=== PATIENT | female | born 1995 | race Caucasian/White ===

== ENCOUNTER 2020-08-28 14:58 | Emergency (ER) | payer SELFPAY ==
[2020-08-28 15:08] VITALS: BP 151/81; PULSE 123; RESP 28; TEMP 37.1; O2SAT 96
--- NOTE | 2020-08-28 15:10 | ECG_ITS ---
Measurements Intervals [place] Rate: 116 P: 77 VA: 129 QRS: 43 QRSD: 86 T: 51 QT: 334 QTc: 464 Interpretive Statements SINUS TACHYCARDIA BASELINE ARTIFACT- I, II, III, AVR, AVL, AVF, V1-V6 ABNORMAL ECG Electronically Signed On 08-28-2020 19:21:41 CDT by Zack Matthews D.O.
[2020-08-28] MEDS: LORazepam INJ (*CRX) 2 MG/ML VIAL 1 MG IV PUSH (15:18)
[2020-08-28] MEDS: MORPHINE SULFATE (*CRX) 4 MG/ML INJ IV PUSH (15:52)
[2020-08-28 15:53] VITALS: BP 131/73; PULSE 81; RESP 31; O2SAT 100
[2020-08-28] MEDS: ONDANSETRON INJ 4 MG/2 ML VIAL IV PUSH (15:53)
[2020-08-28 16:05] LABS: Alveolar/Arterial O2 Gradient 350.9 mmHg; Base Excess ABG -5.7 mEq/l (+/-2.0); Fractional Inspired Oxygen 100 %; HCO3 ABG 20.3 mEq/l (22.0-26.0); Oxygen Content ABG 20.2 %vol (16.0-22.0); Oxygen Saturation ABG 99.7 % (95.0-100.0); Oxyhemoglobin 98.1 % THb (90.0-100.0); PO2 ABG 320.1 mmHg (80.0-100.0); Total Hemoglobin 14.1 g/dL (12.0-18.0); pH ABG 7.303 (7.350-7.450)
[2020-08-28 16:06] LABS: Device NON-REBREATHER MASK; Site Drawn RIGHT BRACHIAL
[2020-08-28 16:16] LABS: Basophils Percent Auto 0.2 % (0.2-1.2); Eosinophils Percent Auto 0.1 % (0-4.4); Hemoglobin 14.3 g/dL (12.0-15.0); Immature Granulocyte Absolute 0.06 K/mm3 (0.00-0.031); Immature Granulocyte Percent A 0.3 % (0-0.5); Lymphocytes Absolute Auto 0.83 K/mm3 (0.9-3.2); Lymphocytes Percent Auto 4.6 % (18.3-44.2); Mean Corpuscular HGB Conc 32.5 g/dl (32-36); Mean Corpuscular Hemoglobin 31.2 pg (26-34); Mean Corpuscular Volume 96.1 fl (80-100); Mean Platelet Volume 11.5 fl (7.4-10.4); Monocytes Absolute Auto 0.8 K/mm3 (0.1-0.6); Monocytes Percent Auto 4.3 % (2.6-8.5); Neutrophils Absolute Auto 16.2 K/mm3 (1.3-6.7); Neutrophils Percent Auto 90.5 % (45.5-73.1); Platelet Count Result 335 k/mm3 (150-375); Red Blood Count 4.58 M/mm3 (4.2-5.4); Red Cell Distribution Width 12.7 % (11.5-14.5); White Blood Count 17.9 K/mm3 (4.5-10.0)
[2020-08-28 16:30] LABS: Alanine Aminotransferase 24 U/L (4-35); Albumin Level 5.2 g/dL (3.5-5.1); Alkaline Phosphatase 61 U/L (38-126); Anion Gap 15 mmol/L (8-16); Aspartate Amino Transferase 95 U/L (14-36); Bilirubin,Total 0.8 mg/dL (0.2-1.3); Blood Urea Nitrogen 17 mg/dL (7-17); Calcium 9.9 mg/dL (8.4-10.2); Carbon Dioxide 22 mmol/L (22-30); Chloride 102 mmol/L (98-107); Estimated CRCL calculation 69 ml/min; Estimated Glomerular Filt Rate > 60; Glucose 97 mg/dL (65-105); Potassium 4.4 mmol/L (3.4-5.0); Sodium 139 mmol/L (137-145)
[2020-08-28] MEDS: KETOROLAC 30 MG/ML VIAL (*BKC) IV PUSH (17:27)
[2020-08-28] MEDS: SODIUM CHLORIDE 0.9% IV 1,000 ML 999 ML IV CONT (17:27)
[2020-08-28 18:16] VITALS: BP 105/55; PULSE 103; RESP 16; O2SAT 99
--- NOTE | 2020-08-28 18:31 | ED.GENADULT ---
HPI - General Adult General Chief complaint: Neuro Symptoms/Deficit Stated complaint: my body is paralized Source: patient, family and RN notes reviewed Limitations: no limitations History of Present Illness HPI narrative: Patient is 24 years old white female brought to the emergency room by her mom because of painful spasm of the fingers hands and toes and feet started at 8:00 AM today. Patient reported having similar symptoms 2 years ago. Used to be on Klonopin to manage similar situation but ran out of it months ago. Patient been using marijuana 3 times a week instead. Patient reports a lot of stress lately. Patient denied any fever, chills, nausea, vomiting, chest pain, shortness of breath, back pain or abdominal pain or headache. Related Data Allergies Allergy/AdvReac Type Severity Reaction Status Date / Time No Known Allergies Allergy Verified 10/10/16 12:00 Review of Systems Review of Systems: Narrative: CONSTITUTIONAL: Denies fever, chills, or sweats. EYES: Denies visual changes, redness, or discharge. ENT: Denies rhinorrhea, congestion, sore throat, or otalgia. CARDIOVASCULAR: Denies chest pain, palpitations, or edema. RESPIRATORY: Denies cough or dyspnea. GASTROINTESTINAL: Denies abdominal pain, nausea, vomiting, or diarrhea. GENITOURINARY: Denies dysuria or hematuria. SKIN: Denies rash or itching. MUSCULOSKELETAL: Denies back pain, joint pain, or myalgia. NEUROLOGIC: Denies headache, numbness, or weakness. PSYCHIATRIC: Denies anxiety or depression. [facility] Family History Family History Father Family history of diabetes mellitus in first degree relative Exam Narrative: Exam Narrative: General appearance: Well-developed, well-nourished, hyperventilating, mother at the bedside Skin: Normal color Head: Normocephalic, nontraumatic Eyes: Clear conjunctiva ENT: Oropharynx normal, ears normal, nose normal Neck: Supple, nontender Chest and respiratory: Airway patent, no respiratory distress, no accessory muscle use Heart: Regular rate/rhythm Abdomen: Soft, nontender, no organomegaly, quiet bowel sounds Vascular: Normal peripheral pulses, normal capillary refill. Musculoskeletal: Carpopedal spasm, spasm of the toes Neurologic: Alert and oriented ?3, SUPERINTENDENT LOGGING is normal as tested, no gross motor deficit Course Course Emergency Course: Improving Vital Signs Vital signs: Vital Signs Temperature 37.1 C 08/28/20 15:08 Pulse Rate 123 H 08/28/20 15:08 Respiratory Rate 28 H 08/28/20 15:08 Blood Pressure 151/81 H 08/28/20 15:08 Pulse Oximetry 96 08/28/20 15:08 Temperature 37.1 C 08/28/20 15:08 Pulse Rate 103 H 08/28/20 18:16 Respiratory Rate 16 08/28/20 18:16 Blood Pressure 105/55 L 08/28/20 18:16 Pulse Oximetry 99 08/28/20 18:16 Medical Decision Making MDM Narrative Medical decision making narrative: Ventimask, Ativan IV ordered. Further plan to follow Hyperventilation syndrome is my concern. Differential Diagnosis Differential Diagnosis: Hyperventilation syndrome, electrolyte abnormality Vital Signs Vital Signs: Vital Signs Temperature 37.1 C 08/28/20 15:08 Pulse Rate 123 H 08/28/20 15:08 Respiratory Rate 28 H 08/28/20 15:08 Blood Pressure 151/81 H 08/28/20 15:08 Pulse Oximetry 96 08/28/20 15:08 Temperature 37.1 C 08/28/20 15:08 Pulse Rate 103 H 08/28/20 18:16 Respiratory Rate 16 08/28/20 18:16 Blood Pressure 105/55 L 08/28/20 18:16 Pulse Oximetry 99 08/28/20 18:16 Lab Data Result diagrams: 08/28/20 16:04 08/28/20 16:04 Labs: Lab Results 08/28/20 08/28/20 Range/Units 16:04 16:04
[2020-08-28 18:53] LABS: Add Urine Microscopic? YES; Appearance Urine Cloudy (Clear); Bilirubin Urine Negative (Negative); Blood Urine 1+ (Negative); Color Urine Yellow (Yellow); Glucose Urine UA Negative (Negative); Ketones Urine 2+ mg/dL (Negative); Leukocyte Esterase Ur Negative LEU/UL (Negative); Mucus Urine Moderate /lpf; Nitrate Urine Negative (Negative); Protein Urine 2+ mg/dL (Negative); Specific Grav Ur 1.027 (1.001-1.035); Squamous Epithelial Cell Urine Few /hpf (Few); Urobilinogen Urine Negative mg/dL (<2.0); WBC Urine 0-3 /hpf
[2020-08-28 18:56] VITALS: BP 118/72; PULSE 78; RESP 15; O2SAT 100
== END 2020-08-28 18:57 | disposition home or self-care (01) ==
PROVIDERS: Emergency Provider Emergency Medicine; PCP Family Medicine
DX: F45.8 Other somatoform disorders (principal)
CPT/HCPCS: 36415; 36600; 80053; 81001; 81025; 82805; 85025; 93005; 96361; 96374; 96375; 99284; J1885; J2060; J2270; J2405; J7030

== ENCOUNTER 2024-07-26 14:42 | Emergency (ER) | payer OTHER, MEDICAID, SELFPAY ==
[2024-07-26 14:45] VITALS: BP 120/60; PULSE 54; RESP 20; TEMP 35.8; O2SAT 96
--- OUTSIDE RECORDS SUMMARY | 2024-07-26 14:45 | XMS_ITS | Clinical Summary ---
Author Organization [facility] Address [address] [place] [address] Care Team Providers Care Thread Drawer Name Role Phone Nguyễn Matias MD Primary Care Provider [phone] Source Comments [facility],non-owned Affiliates and Associated Physician Practices is amultiple site organization consisting of ambulatory clinics and hospital sitesin [place], [place], [place] and [place]. This disclosure is being madepursuant to the Care Everywhere program and may not contain all information available regarding this patient. Last updated 18.[facility] Medications * Be aware that medications may not be up to date on this document. Alwaysverify current medications with the patient. Medication Sig Dispensed Refills Start Date End Date Status albuterol HFA (PROVENTIL HFA) 108 (90 BASE) MCG/ACT inhaler Inhale 2 puffs by mouth q6h PRN. 01/13/2017 Active ondansetron (ZOFRAN) 8 MG tablet Take 8 mg by mouth. 0 12/24/2016 Active Active Problems Problem Noted Date Diagnosed Date Chronic viral hepatitis C 01/13/2017 Social History Tobacco Use Types Packs/Day Years Used Date Smoking Tobacco: Every Day Smokeless Tobacco: Never Alcohol Use Standard Drinks/Week Comments Yes 0 (1 standard drink = 0.6 oz pur e alcohol) Sex and Gender Information Value Date Recorded Sex Assigned at Not on file Gender Identity Not on file Sexual Orientation Not on file Last Filed Vital Signs Vital Sign Reading Time Taken Comments Blood Pressure 101/58 01/13/2017 10:29 AM CDT Pulse 71 01/13/2017 10:29 AM CDT Temperature 36.6 C (97.8 F) 01/13/2017 10:29 AM CDT Respiratory Rate - - Oxygen Saturation 100% 01/13/2017 10:29 AM CDT Inhaled Oxygen Concentration - - Weight 56.3 kg (124 lb 3.2 oz) 01/13/2017 10:29 AM CDT Height 167.6 cm (5' 6 ) 01/13/2017 10:29 AM CDT Body Mass Index 20.05 01/13/2017 10:29 AM CDT Plan of Treatment Health Maintenance Due Date Last Done Comments PAP SMEAR 1995 HIV SCREENING 12/19/2010 DTAP/TDAP/TD VACCINES (1 - Tdap) 12/19/2014 HEPATITIS B VACCINE (1 of 3 - 19+ 3-dose series) 12/19/2014 COVID-19 VACCINE (1 - 2023- season) 2023 INFLUENZA VACCINE (#1) 2023 DEPRESSION SCREENING 05/01/2024 ZOSTER VACCINE (1 of 2) 12/19/2045 HEPATITIS C SCREENING Completed 01/13/2017 , 01/13/2017, 01/13/2017, Additional history exists HIB VACCINE Aged Out No longer eligi ble based on patient's age to complete this topic HPV VACCINE Aged Out No longer eligi ble based on patient's age to complete this topic MENINGOCOCCAL (Group B) VACCINE SHARED DECISION-MAKING Aged Out No longer eligible based on patient's age to complete this topic MENINGOCOCCAL GROUPS A/C/Y/W VACCINE Aged Out No longer eligible based on patient's age to complete this topic PNEUMOCOCCAL VACCINE Aged Out No long er eligible based on patient's age to complete this topic Procedures Procedure Name Priority Date/Time Associated Diagnosis Comments HEPATITIS C RNA QUANTITATIVE Routine 01/13/2017 11:19 AM CDT from Last 3 Months or Most Recently Relevant to Health Maintenance Results * HEPATITIS C RNA QUANTITATIVE PCR (01/13/2017 11:19 AM CDT) Pathologist [facility] Hepatitis C Virus RNA PCR Accession No: [id number] Specimen: Serum Reference: [id number] Test: Hepatitis C RT-PCR (Quantitative) RESULT Not Detected HCV genotyping not performed due to viral load <500 IU/ml. Reference Range Not Detected INTERPRETATION The quantitative Hepatitis C viral RNA RT-PCR determination was performed on a serum sample and is reported in IU/ml. Hepatitis C viral RNA was not detected. COMMENT The Hepatitis C viral (HCV) RNA analysis utilized a serum sample, real-time reverse personal driver PCR, and is reported as Not Detected, Detected (<12 IU/ml), Quantity (IU/ml) or >100,000,000 IU/ml. The limit of quantiation of the assay is 12 IU/ml (100% of samples with this HCV RNA level were detected). The linear range is from 12 IU/ml to 100,000,000 IU/ml. Values less than 12 IU/ml are reported as Detected (<12 IU/ml). Values greater than 100,000,000 IU/ml are reported as >100,000,000 IU/ml. The detection/quantit ation of HCV RNA in serum is based on the isolation of HCV RNA with reverse personal driver of genomic HCV RNA followed by real-time PCR in the presence of an unrelated RNA internal control. The internal control ensures that RNA is isolated, and that no general significant inhibitors of the RT-PCR process are present. This analysis was performed using an [place] FDA approved test methodology ([employer]ibo RealTime HCV). Test performed at [facility], [address] [place] [address] This case has been personally reviewed and interpreted by the attending (teaching) pathologist. Final Diagnosis performed by Jonathan Orellana PHD. Electronically signed 01/21/2017 [facility] Blood specimen (specimen) BLOOD SPECIMEN / Unknown 01/13/2017 11:19 AM CDT 01/13/2017 11:32 AM CDT Delmi Rodriguez PA-C LAB - CHEMISTRY O RDKASSIDY [facility] from Last 3 Months or Most Recently Relevant to Health Maintenance Care Teams Thread Drawer Relationship Specialty Start Date End Date Nguyễn Matias MD [address] [address] PCP - General 02/27/20
--- OUTSIDE RECORDS SUMMARY | 2024-07-26 14:45 | XMS_ITS | Clinical Summary ---
Author Organization [facility] Care Team Providers Care Trim Machine Operator Name Role Phone Unavailable Primary Care Provider Unavailabl e Social History Tobacco Use Types Packs/Day Years Used Date Smoking Tobacco: Never Assessed Comments Unknown Sex and Gender Information Value Date Recorded Sex Assigned at Not on file Legal Sex Female 12:14 PM [employer] Gender Identity Not on file Sexual Orientation Not on file Plan of Treatment Health Maintenance Due Date Last Done Comments Hepatitis C Virus (HCV) Screening 1995 TdaP Immunization 1995 Hepatitis B Immunization (1 of 3 - 19+ 3-dose series) 12/19/2014 Pap Smear 12/19/2016 Influenza Immunization (#1) 12/31/202301/29, 02/08/2013 SARS-COV-2 Immunization ( season) 2023 Respiratory Syncytial Virus (RSV) Immunization (Adult) (1 - 1-dose 75+ series) 12/19/2070 Meningococcal Immunization (ACWY) Aged Out No longer eligible b ased on patient's age to complete this topic Pneumococcal Immunization Combined Aged Out No longer eligible b ased on patient's age to complete this topic Rotavirus Immunization Aged Out No lo nger eligible based on patient's age to complete this topic
--- OUTSIDE RECORDS SUMMARY | 2024-07-26 14:45 | XMS_ITS | Clinical Summary ---
Author Organization [facility] Address [address] [place] [id number] Care Team Providers Care Refractory Mixer Name Role Phone Nguyễn Matias MD Primary Care Provider [phone] Allergies Active Allergy Reactions Criticality Noted Date Comments Grass Eyes Water & Itch 05/27/2016 Medications clotrimazole (LOTRIMIN) 1 % creamIndications: Generalized anxiety disorder Apply topically 2 (two) times daily. 113 g 3 10/26/19 24 Active albuterol sulfate HFA 108 (90 Base) MCG/ACT inhalerIndication s:Moderate persistent asthma without complication (HHS/HCC) Inhale 2 puffs into the lungs every 6 (six) hours as needed for Wheezing. Only uses when excercises 18 g 3 10/26/19 24 Active escitalopram (LEXAPRO) 20 MG tabletIndications :Generalized anxiety disorder Take 1 tablet (20 mg total) by mouth every morning. 90 tablet 3 05/07/19 25 026 Active amphetamine-dextr oamphetamine (ADDERALL) 20 MG tabletIndications :Attention deficit hyperactivity disorder (ADHD), predominantly inattentive type Take 1 tablet (20 mg total) by mouth 2 (two) times daily. 60 tablet 06/04/19 25 Active glycerin-hypromel lose-PEG 400 (ARTIFICIAL TEARS) 0.2-0.2-1 % ophthalmic solution Place 1 drop into both eyes every 2 (two) hours as needed (Dry eyes). Active ibuprofen (MOTRIN) 200 MG tablet Take 4 tablets (800 mg total) by mouth daily as needed for Pain. Active LORazepam (ATIVAN) 2 MG tabletIndications :Panic disorder Take 1 tablet (2 mg total) by mouth 2 (two) times daily as needed for Anxiety. 10 tablet 07/23/19 25 Active fluconazole (DIFLUCAN) 150 MG tabletIndications :Generalized anxiety disorder Take 1 tablet (150 mg total) by mouth once a week. 2 tablet 10/26/19 24 025 Discontin ued(Error ) LORazepam (ATIVAN) 2 MG tabletIndications :Muscle cramps Take 1 tablet (2 mg total) by mouth every 6 (six) hours as needed for Other (muscle spasms). 10 tablet 05/24/19 25 025 Discontin ued(Error ) LORazepam (ATIVAN) 2 MG tabletIndications :Panic disorder Take 1 tablet (2 mg total) by mouth 2 (two) times daily as needed for Anxiety. 10 tablet 06/04/19 25 025 Discontin ued(Reord er) LORazepam (ATIVAN) 2 MG tabletIndications :Panic disorder Take 1 tablet (2 mg total) by mouth 2 (two) times daily as needed for Anxiety. 10 tablet 07/02/19 25 025 Discontin ued(Reord er) Active Problems Problem Noted Date Diagnosed Date Abnormal genetic test 05/03/2023 Generalized anxiety disorder 08/04/2022 Panic disorder 08/04/2022 Attention deficit hyperactiv ity disorder (ADHD), predominantly inattentive type 04/12/2022 Chronic bilateral low back pain without sciatica 04/12/2022 Status post arthroscopy of knee 10/05/2021 Bipolar 2 disorder, major de pressive episode (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) 05/27/2016 Major depressive disorder, r ecurrent episode, severe ([facility]) 04/03/2014 Resolved Problems Problem Noted Date Diagnosed Date Resolved Date Hepatitis-C 01/03/2017 02/06/2019 Encounters Date Type Department Care Team Description 07/04/2024 3:23 AM ELECTRONICS DETAIL DRAFTSPERSON - 07/04/2024 4:17 PM [facility] Emergency [facility] [place] [address] Jaylen Medel MD,PHD Fouzia Albarran MD Suicidal Ideation Discharge Disposition: Home or Self Care (Routine Discharge) 07/04/2024 Travel 05/24/2024 8:26 AM ELECTRONICS DETAIL DRAFTSPERSON - 05/24/2024 9:57 AM ELECTRONICS DETAIL DRAFTSPERSON Emergency [facility] [address] [address] Susan Barrera PA Musculoskeletal Problem Discharge Disposition: Home or Self Care (Routine Discharge) 05/24/2024 Travel from Last 3 Months Immunizations Name Administration Dates Next Due Fluzone 6 Months+ Quad (0.5 mL Prefilled Syringe ) 04/12/2022,02/13/2020 Influenza Adult (Generic) 02/08/2013 Td (Tenivac) preservative free 1995 Tdap (Adacel) 04/12/2022 Family History Medical History Relation Comments Diabetes Father Alcohol Abuse Mother COPD Mother Mental Health Mother Relation Status Comments Father Alive Mother Alive Social History Tobacco Use Types Packs/Day Years Used Date Smoking Tobacco: Former Cigarettes 0.3 3 0 05/01/2013 - 05/01/2016 Passive Smoke Exposure: Past Smokeless Tobacco: Never Tobacco Cessation:Counseling Given: Not Answered Comments:Former, Quit 2016 Alcohol Use Standard Drinks/Week Comments Not Currently 0 (1 standard drink = 0.6 oz pure alcohol) not daily, but more than socially AUDIT-C Answer Date Recorded Frequency of Alcohol Consumption Never 03/08/2018 Average Number of Drinks Not on file 018 Frequency of Binge Drinking Not on file 11/2017 PHQ-2 Answer Date Recorded Patient Health Questionnaire-2 Score 4 10/26/2023 Comments No Sex and Gender Information Value Date Recorded Sex Assigned at Female 05/24/2024 7:58 AM ELECTRONICS DETAIL DRAFTSPERSON Legal Sex Female 5:13 PM CDT Gender Identity Not on file Sexual Orientation Not on file Last Filed Vital Signs Vital Sign Reading Time Taken Comments Blood Pressure 117/87 07/04/2024 3:11 PM ELECTRONICS DETAIL DRAFTSPERSON Pulse 105 07/04/2024 3:11 PM ELECTRONICS DETAIL DRAFTSPERSON Temperature 37.4 C (99.3 F) 07/04/2024 3:11 PM ELECTRONICS DETAIL DRAFTSPERSON Respiratory Rate 19 07/04/2024 3:23 AM ELECTRONICS DETAIL DRAFTSPERSON Oxygen Saturation 100% 07/04/2024 3:11 PM ELECTRONICS DETAIL DRAFTSPERSON Inhaled Oxygen Concentration - - Weight 63.5 kg (140 lb) 07/04/2024 3:23 AM ELECTRONICS DETAIL DRAFTSPERSON Height 167.6 cm (5' 6 ) 07/04/2024 3:23 AM ELECTRONICS DETAIL DRAFTSPERSON Body Mass Index 22.6 07/04/2024 3:23 AM ELECTRONICS DETAIL DRAFTSPERSON Plan of Treatment Health Maintenance Due Date Last Done Comments Pneumococcal Vaccine: Pediatrics (0 to 5 Years) and At-Risk Patients (6 to 64 Years) (1 of 2 - PCV) 12/19/2001 Hepatitis B Vaccines (1 of 3 - 19+ 3-dose series) 12/19/2014 Annual Physical 05/28/2021 05/28/2020 COVID-19 Vaccine (2023- season) 2023 10/08/2020, 09/17/2020 Influenza Adult (#1) 2024 04/12/2022, 02/13/2020, 02/08/2013 PHQ-2 (Physician [place]) 05/01/2024 10/26/2023 Cervical Cancer Screening Pap Smear (Age 21 to 29) Every 3 Years 05/19/2025 05/19/2022, 05/28/2020, 05/28/2020, Additional history exists Cervical Cancer Screening 05/19/2025 DTaP, Tdap and Td Vaccines (2 - Td or Tdap) 04/12/2032 04/12/2022, 1995 Hepatitis C Completed 10/27/2023, 05/02, 02/06/2019, Additional history exists HPV Vaccines Aged Out No longer eligi ble based on patient's age to complete this topic Meningococcal B Vaccine Aged Out No l onger eligible based on patient's age to complete this topic Meningococcal Vaccine Aged Out No karie horacio eligible based on patient's age to complete this topic RSV Immunizations Under 20 Months Aged Out No longer eligible based on patient's age to complete this topic Medical Devices Implanted Type Area Cotton Wringer Device Identifier Shelf Expiration Date Model / Serial / Lot Truespan Meniscal Repair System Implanted:Qty: 1 on 10/05/2021 by Gordon Heller MD at [facility] [place] Right: Knee [id number] 02/29/2024 [id number] / / [id number] Truespan Meniscal Repair System Implanted:Qty: 1 on 10/05/2021 by Gordon Heller MD at [facility] [employer] [place] Right: Knee [id number] 07/30/2023 [id number] / / [id number] Procedures Procedure Name Priority Date/Time Associated Diagnosis Comments ETHANOL STAT 07/04/2024 2:00 PM ELECTRONICS DETAIL DRAFTSPERSON DRUG SCREEN RAPID STAT 07/04/2024 4:3 2 AM ELECTRONICS DETAIL DRAFTSPERSON POCT URINE (BACK OFFICE) STAT 07/04/2024 4:31 AM ELECTRONICS DETAIL DRAFTSPERSON THYROXINE, FREE (FT4) STAT 07/04/2024 3:45 AM ELECTRONICS DETAIL DRAFTSPERSON THYROID STIM HORMONE TSH STAT 07/04/2024 3:45 AM ELECTRONICS DETAIL DRAFTSPERSON SALICYLATE STAT 07/04/2024 3:45 AM ELECTRONICS DETAIL DRAFTSPERSON ACETAMINOPHEN STAT 07/04/2024 3:45 AM ELECTRONICS DETAIL DRAFTSPERSON ETHANOL STAT 07/04/2024 3:45 AM ELECTRONICS DETAIL DRAFTSPERSON MAGNESIUM STAT 07/04/2024 3:45 AM ELECTRONICS DETAIL DRAFTSPERSON COMPREHENSIVE METABOLIC PANEL STAT 07/04/2024 3:45 AM ELECTRONICS DETAIL DRAFTSPERSON CBC W/DIFF AUTOMATED STAT 07/04/2024 3:45 AM ELECTRONICS DETAIL DRAFTSPERSON RESPIRATORY PCR PANEL 2 STAT 07/04/2024 3:35 AM ELECTRONICS DETAIL DRAFTSPERSON CK (CPK) STAT 05/24/2024 8:31 AM ELECTRONICS DETAIL DRAFTSPERSON COMPREHENSIVE METABOLIC PANEL STAT 05/24/2024 8:31 AM ELECTRONICS DETAIL DRAFTSPERSON CBC W/DIFF AUTOMATED STAT 05/24/2024 8:31 AM ELECTRONICS DETAIL DRAFTSPERSON HEPATITIS C ANTIBODY Routine 10/27/2023 3:50 PM CDT Healthcare maintenance Screening for diabetes mellitus (DM) Attention deficit hyperactivity disorder (ADHD), predominantly inattentive type Generalized anxiety disorder Seborrheic dermatitis Encounter for hepatitis C screening test for low risk patient Panic disorder Moderate persistent asthma without complication (HHS/HCC) Irregular periods CYTOPATH CERV/VAG THIN LAYER Routine 05/19/2022 9:16 AM ELECTRONICS DETAIL DRAFTSPERSON from Last 3 Months or Most Recently Relevant to Health Maintenance Results * (ABNORMAL) ETHANOL (07/04/2024 2:00 PM ELECTRONICS DETAIL DRAFTSPERSON) Only the most recent of2 resultswithin the time period is included. Pathologist [facility] ALCOHOL S/P/B 0.056(H) <0.003 G/DL 07/04/2024 2:28 PM ELECTRONICS DETAIL DRAFTSPERSON [facility] 07/04/2024 2:00 PM ELECTRONICS DETAIL DRAFTSPERSON us Jaylen Medel MD,PHD LABORATORY Final Resu lt [facility] [address] [place] [address], [place] [phone] * (ABNORMAL) DRUG SCREEN RAPID (07/04/2024 4:32 AM ELECTRONICS DETAIL DRAFTSPERSON) AMPHETAMINE (U) NEGATIVE NEGATIVE 5:18 AM ELECTRONICS DETAIL DRAFTSPERSON [facility] BARBITURATES SCREEN (U) NEGATIVE NEGATIVE 07/04/2024 5:18 AM ELECTRONICS DETAIL DRAFTSPERSON [facility] BENZODIAZEPINES SCREEN (U) NEGATIVE NEGATIVE 07/04/2024 5:18 AM ELECTRONICS DETAIL DRAFTSPERSON [facility] CANNABINOIDS SCREEN (U) POSITIVE(A) NEGATIVE 07/04/2024 5:18 AM ELECTRONICS DETAIL DRAFTSPERSON [facility] COCAINE METABOLITES (U) NEGATIVE NEGATIVE 07/04/2024 5:18 AM [facility] METHADONE (U) NEGATIVE NEGATIVE 07/04/2024 5:18 AM [facility] OPIATE SCREEN (U) NEGATIVE NEGATIVE 025 5:18 AM [facility] PHENCYCLIDINE PCP (U) NEGATIVE NEGATIVE 07/04/2024 5:18 AM [facility] Comment: NOTE: RESULTS OF THIS DRUG SCREEN SHOULD BE USED FOR MEDICAL PURPOSES ONLY AND NOT FOR LEGAL OR EMPLOYMENT PURPOSES. POSITIVE RESULTS ARE NOT CONFIRMED. MEDICATIONS CONTAINING EPHEDRINE MAY CAUSE FALSE POSITIVE AMPHETAMINE CALL [phone], LAB, TO REQUEST CONFIRMATION TESTING. IF CREATININE IS <40 mg/dL. RECOLLECTION IS SUGGESTED. AMPHETAMINE- 500 NG/ML BARBITURATE- 200 NG/ML BENZODIAZEPINES- 200 NG/ML THC- 50 NG/ML COCAINE- 150 NG/ML METHADONE- 300 NG/ML OPIATE- 300 MG/ML PCP- 25 NG/ML CREATININE (U) 119.0 28 - 217 MG/DL 07/04/2024 5:18 AM [facility] URINE SPECIMEN / Unknown 07/04/2024 4:32 AM ELECTRONICS DETAIL DRAFTSPERSON us Jaylen Medel MD,PHD URINE ORDERABLES Final Res ult [facility] [address] [place] [address], [place] [phone] * POCT urine (07/04/2024 4:31 AM ELECTRONICS DETAIL DRAFTSPERSON) URINE HCG TEST NEGATIVE Internal Control: VALID us Jaylen Medel MD,PHD POINT OF CARE TEST ORDERAB LES Final Result * (ABNORMAL) COMPREHENSIVE METABOLIC PANEL (07/04/2024 3:45 AM ELECTRONICS DETAIL DRAFTSPERSON) Only the most recent of2 resultswithin the time period is included. GLUCOSE 105(H) 70 - 99 MG/DL 07/04/2024 4:35 AM [facility] BUN 7 7 - 18 MG/DL 07/04/2024 4:35 AM [facility] CREATININE S/P/B 0.70 0.55 - 1.02 MG/DL 07/04/2024 4:35 AM [facility] SODIUM S/P/B 142 136 - 145 MMOL/L 07/04/2024 4:35 AM [facility] POTASSIUM S/P/B 3.7 3.5 - 5.1 MMOL/L 07/04/2024 4:35 AM [facility] CHLORIDE S/P/B 111 97 - 115 MMOL/L 07/04/2024 4:35 AM [facility] CO2 27.4 21 - 32 MMOL/L 07/04/2024 4:35 AM [facility] CALCIUM S/P/B 8.4(L) 8.5 - 10.1 MG/DL 07/04/2024 4:35 AM [facility] BILIRUBIN TOTAL S/P/B 0.5 0.2 - 1.2 MG/DL 07/04/2024 4:35 AM [facility] Comment: THIS ASSAY IS NOT RECOMMENDED FOR PATIENTS UNDERGOING TREATMENT WITH ELTROMBOPAG DUE TO THE POTENTIAL FOR FALSELY ELEVATED RESULTS. TOTAL PROTEIN S/P/B 7.3 6.4 - 8.2 G/DL 07/04/2024 4:35 AM [facility] ALBUMIN S/P/B 3.8 3.4 - 5.0 G/DL 07/04/2024 4:35 AM [facility] AST 20 15 - 37 U/L 07/04/2024 4:35 AM [facility] ALT 24 14 - 55 U/L 07/04/2024 4:35 AM [facility] ALKALINE PHOSPHATASE S/P/B 52 50 - 136 U/L 07/04/2024 4:35 AM ELECTRONICS DETAIL DRAFTSPERSON [facility] ANION GAP 3.6 2 - 10 MMOL/L 07/04/2024 4:35 AM [facility] BUN CREATININE RATIO 10.1 6 - 26 07/04/2024 4:35 AM [facility] A/G RATIO 1.1 1.0 - 2.0 RATIO 07/04/2024 4:35 AM [facility] GFR ESTIMATE >90 >90 ML/MIN/1.7 3 M2 07/04/2024 4:35 AM [facility] Comment: NOTE: eGFR is not calculated for patients <18 years of age or gender unknown. This is an estimated GFR calculation using the new CKD EPI creatinine equation without race and so does not require a correction factor for race. This estimated GFR should not be used for calculating drug doses. 07/04/2024 3:45 AM ELECTRONICS DETAIL DRAFTSPERSON us Jaylen Medel MD,PHD LABORATORY Final Resu lt [facility] [address] [place] [address], [place] [phone] * CBC W/DIFF AUTOMATED (07/04/2024 3:45 AM ELECTRONICS DETAIL DRAFTSPERSON) Only the most recent of2 resultswithin the time period is included. WBC 5.97 4.5 - 11.0 x10'3/uL 07/04/2024 3:57 AM ELECTRONICS DETAIL DRAFTSPERSON [facility] RBC 4.21 4.20 - 5.40 x10'6/uL 07/04/2024 3:57 AM ELECTRONICS DETAIL DRAFTSPERSON [facility] HGB 13.0 12.0 - 16.0 G/DL 07/04/2024 3:57 AM ELECTRONICS DETAIL DRAFTSPERSON [facility] HCT 38.7 38.0 - 48.0 % 07/04/2024 3:57 AM [facility] MCV 91.9 81.0 - 99.0 FL 07/04/2024 3:57 AM [facility] MCH 30.9 27.0 - 31.0 PG 07/04/2024 3:57 AM [facility] MCHC 33.6 32.0 - 36.0 G/DL 07/04/2024 3:57 AM [facility] RDW 13.0 11.5 - 14.5 % 07/04/2024 3:57 AM [facility] PLT 350 130 - 400 x10'3/uL 07/04/2024 3:57 AM [facility] MPV 10.3 9.3 - 12.2 FL 07/04/2024 3:57 AM [facility] DIFFERENTIAL TYPE AUTOMATED DIFFERENTIAL 07/04/2024 3:57 AM [facility] NEUTROPHILS % 56.4 % 07/04/2024 3:57 AM [facility] LYMPHOCYTES % 36.2 % 07/04/2024 3:57 AM [facility] MONOCYTES % 5.9 % 07/04/2024 3:57 AM [facility] EOSINOPHILS 0.8 % 07/04/2024 3:57 AM [facility] BASOPHILS 0.5 % 07/04/2024 3:57 AM [facility] IMMATURE GRANS % 0.2 % 07/05/19 3:57 AM [facility] ABS. NEUTROPHILS 3.37 1.80 - 7.70 x10'3/uL 07/04/2024 3:57 AM [facility] ABS. LYMPHOCYTES 2.16 1.00 - 4.80 x10'3/uL 07/04/2024 3:57 AM ELECTRONICS DETAIL DRAFTSPERSON [facility] ABS. MONOCYTES 0.35 0.24 - 0.86 x10'3/uL 07/04/2024 3:57 AM ELECTRONICS DETAIL DRAFTSPERSON [facility] ABS. EOSINOPHILS 0.05 0.04 - 0.36 x10'3/uL 07/04/2024 3:57 AM ELECTRONICS DETAIL DRAFTSPERSON [facility] ABS. BASOPHILS 0.03 0.01 - 0.08 x10'3/uL 07/04/2024 3:57 AM ELECTRONICS DETAIL DRAFTSPERSON [facility] ABS. IMMATURE GRANULOCYTES 0.01 0.00 - 0.49 x10'3/uL 07/04/2024 3:57 AM ELECTRONICS DETAIL DRAFTSPERSON [facility] 07/04/2024 3:45 AM ELECTRONICS DETAIL DRAFTSPERSON us Jaylen Medel MD,PHD LABORATORY Final Resu lt [facility] [address] [place] [address], * THYROXINE, FREE (FT4) (07/04/2024 3:45 AM ELECTRONICS DETAIL DRAFTSPERSON) FREE T4 0.92 0.76 - 1.46 NG/DL 07/04/2024 4:35 AM ELECTRONICS DETAIL DRAFTSPERSON [facility] 07/04/2024 3:45 AM ELECTRONICS DETAIL DRAFTSPERSON us Jaylen Medel MD,PHD LABORATORY Final Resu lt [facility] [address] [place], [place] [address], [place] [phone] * THYROID STIM HORMONE TSH (07/04/2024 3:45 AM ELECTRONICS DETAIL DRAFTSPERSON) TSH 1.320 0.358 - 3.74 uIU/ML 07/04/2024 4:35 AM ELECTRONICS DETAIL DRAFTSPERSON [facility] Comment: HIGH DOSES OF BIOTIN MAY INTERFERE WITH THIS TEST RESULT. CORRELATION TO CLINICAL HISTORY AND PRESENTATION RECOMMENDED. 07/04/2024 3:45 AM ELECTRONICS DETAIL DRAFTSPERSON Jaylen Medel MD,PHD LABORATORY [facility] Performing Organization Address [facility] Co de Phone Number [facility] [address] [place] [address], * MAGNESIUM (07/04/2024 3:45 AM ELECTRONICS DETAIL DRAFTSPERSON) MAGNESIUM 1.9 1.8 - 2.4 MG/DL 07/04/2024 4:35 AM ELECTRONICS DETAIL DRAFTSPERSON [facility] 07/04/2024 3:45 AM ELECTRONICS DETAIL DRAFTSPERSON Jaylen Medel MD,PHD LABORATORY Final [facility] Performing Organization Address [facility] Co de Phone Number [facility] [address] [place] [address], * (ABNORMAL) SALICYLATE (07/04/2024 3:45 AM ELECTRONICS DETAIL DRAFTSPERSON) SALICYLATES <1.7(L) 2.8 - 20.0 MG/DL 07/04/2024 4:14 AM ELECTRONICS DETAIL DRAFTSPERSON [facility] Comment: THERAPEUTIC: 2.8-20.0 Toxic Level: >=30 07/04/2024 3:45 AM ELECTRONICS DETAIL DRAFTSPERSON us Jaylen Medel MD,PHD LABORATORY Final [facility] Performing Organization Address City/[facility] Co de Phone Number [facility] [address] [place] [address], [place] [phone] * (ABNORMAL) ACETAMINOPHEN (07/04/2024 3:45 AM ELECTRONICS DETAIL DRAFTSPERSON) [facility] ACETAMINOPHEN S/P/B <2.0(L) 10.0 - 30.0 MCG/ML 07/04/2024 4:35 AM ELECTRONICS DETAIL DRAFTSPERSON [facility] Comment: THERAPEUTIC: 10-30 TOXIC: >200 07/04/2024 3:45 AM ELECTRONICS DETAIL DRAFTSPERSON Jaylen Medel MD,PHD LABORATORY Final Resu lt [facility] [address] [place] [id number], * RESPIRATORY PCR PANEL 2 (07/04/2024 3:35 AM ELECTRONICS DETAIL DRAFTSPERSON) [facility] ADENOVIRUS PCR (RESP) NOT DETECTED NOT DETECTED 07/04/2024 5:03 AM [facility] CORONAVIRUS 229E PCR (RESP) NOT DETECTED NOT DETECTED 07/04/2024 5:03 AM [facility] CORONAVIRUS HKU1 PCR (RESP) NOT DETECTED NOT DETECTED 07/04/2024 5:03 AM [facility] CORONAVIRUS NL63 PCR (RESP) NOT DETECTED NOT DETECTED 07/04/2024 5:03 AM [facility] CORONAVIRUS OC43 PCR (RESP) NOT DETECTED NOT DETECTED 07/04/2024 5:03 AM [facility] METAPNEUMOVIRUS PCR (RESP) NOT DETECTED NOT DETECTED 07/04/2024 5:03 AM [facility] RHINOVIRUS/ENTEROV IRUS PCR (RESP) NOT DETECTED NOT DETECTED 07/04/2024 5:03 AM [facility] INFLUENZA A PCR (RESP) NOT DETECTED NOT DETECTED 07/04/2024 5:03 AM ELECTRONICS DETAIL DRAFTSPERSON [facility] INFLUENZA B PCR (RESP) NOT DETECTED NOT DETECTED 07/04/2024 5:03 AM [facility] PARAINFLUENZA 1 PCR (RESP) NOT DETECTED NOT DETECTED 07/04/2024 5:03 AM [facility] PARAINFLUENZA 2 PCR (RESP) NOT DETECTED NOT DETECTED 07/04/2024 5:03 AM ELECTRONICS DETAIL DRAFTSPERSON [facility] PARAINFLUENZA 3 PCR (RESP) NOT DETECTED NOT DETECTED 07/04/2024 5:03 AM [facility] PARAINFLUENZA 4 PCR (RESP) NOT DETECTED NOT DETECTED 07/04/2024 5:03 AM [facility] RSV PCR (RESP) NOT DETECTED NOT DETECTED 07/04/2024 5:03 AM [facility] B PARAPERTUSIS PCR (RESP) NOT DETECTED NOT DETECTED 07/04/2024 5:03 AM [facility] BORDETELLA PERTUSSIS PCR (RESP) NOT DETECTED NOT DETECTED 07/04/2024 5:03 AM [facility] CHLAMYDOPHILA PNEUMONIAE PCR (RESP) NOT DETECTED NOT DETECTED 07/04/2024 5:03 AM [facility] MYCOPLASMA PNEUMONIAE PCR (RESP) NOT DETECTED NOT DETECTED 07/04/2024 5:03 AM [facility] CORONAVIRUS SARS COV 2 PCR (RESP) NOT DETECTED NOT DETECTED 07/04/2024 5:03 AM [facility] NASOPHARYNGEAL SWAB / Unknown 07/04/2024 3:35 AM [employer] Jaylen Medel MD,PHD MICROBIOLOGY - GENERAL ORD ERABLES Final Result [facility] [address] [place] [id number], * CK (CPK) (05/24/2024 8:31 AM [employer]FT[employer]ERSON) CPK 156 21 - 215 U/L 05/24/2024 9:09 AM [employer]ERSON [facility] 05/24/2024 8:31 AM [employer]RA[employer]ERSON Susan GARCIA LABORATORY Final Resul t [facility] [address] [place] [id number], * HEPATITIS C ANTIBODY (10/27/2023 3:50 PM CDT) HEPATITIS C AB NON-REACTI VE NON-REACTI VE 10/27/2023 5:15 PM CDT [facility] 10/27/2023 3:50 PM CDT Nguyễn Matias MD LABORATORY Final Result [facility] [address] [place] [id number], * Cytopath Cerv/Vag Thin Layer (05/19/2022 9:16 AM [employer]RAFT[employer]ERSON) THIN PREP PAP [address] [id number] Department of Pathology Pathology Report CERVICAL/VAGINAL PAP SMEAR REPORT Name: DELMI ERAZO Age: 8 1995 (Age: 26) Location: [facility] Sex: F Collected Date: 05/19/2022 [facility] #: [id number] Date Received: 05/23/2022 Date Reported: 05/24/2022 Provider: NGUYỄN MATIAS MD INTERPRETATION CERVICAL/ENDOCERVI VIVIAN: SATISFACTORY FOR EVALUATION. ENDOCERVICAL/TRANS FORMATION ZONE COMPONENT PRESENT. NEGATIVE FOR INTRAEPITHELIAL LESION OR MALIGNANCY. REACTIVE SQUAMOUS CELLS. TRICHOMONADS PRESENT. Electronically Signed Out MD Lili Uribe, CT (ASCP) CLINICAL HISTORY Z12.4 SCREENING PAP TEST HX OF HPV ThinPrep Pap Test with HR HPV testing in patient > 21 years with ASC-US diagnosis. Date of Last Menstrual Period: UNKNOWN Menstrual Status: Regular SPECIMEN SUBMITTED CERVICAL/ENDOCERVI VIVIAN Specimen Received:1 Thin Prep Vial, Image Assisted Pap (SMD) Please note: The Pap smear is not a diagnostic test. It is a screening test. Negative results on combined screening (Pap test and HPV-DNA) have a high negative predictive value (99.1-100 percent) for cervical cancer. The pap test is not effective in detecting cervical adenocarcinoma. [facility] 05/19/2022 9:16 AM ELECTRONICS DETAIL DRAFTSPERSON 05/23/2022 9:16 AM ELECTRONICS DETAIL DRAFTSPERSON Comment:CERVICAL/ENDOCERVICA L us Nguyễn Matias MD PATHOLOGY/CYTOLOGY ORDERABLES Final Result [facility] [address] [place] [address], from Last 3 Months or Most Recently Relevant to Health Maintenance Insurance [facility] Care Teams Refractory Mixer Relationship Specialty Start Date End Date Nguyễn Matias MD [address] [address] PCP - General FAMILY PRACTICE 02/07/19
--- OUTSIDE RECORDS SUMMARY | 2024-07-26 14:45 | XMS_ITS | Encounter Summary ---
Author Organization [facility] Address [address] [place] [address] Care Team Providers Care Proposal Development Manager Name Role Phone Nguyễn Matias MD Primary Care Provider Encounter Details Date Type Department Care Team (Late st Contact Info) Description 05/17/2021 [email or web address] Message Enc [facility] Family Medicine - [place] [address] [facility], [address] [place] [phone] Nguyễn Matias MD [address] [place], [place] [id number] COVID Rapid Test Social History Tobacco Use Types Packs/Day Years Used Date Smoking Tobacco: Former Smokeless Tobacco: Never Comments:NA Alcohol Use Standard Drinks/Week Comments Not Currently 0 (1 standard drink = 0.6 oz pur e alcohol) every night, damián AUDIT-C Answer Date Recorded Frequency of Alcohol Consumption Never 03/08/2018 Average Number of Drinks Not on file 018 Frequency of Binge Drinking Not on file 11/2017 PHQ-2 Answer Date Recorded PHQ-2 Score - If the patient scores above 3, please move on to questions 3-9 0 12/24/2020 Comments No Sex and Gender Information Value Date Recorded Sex Assigned at Female 05/24/2024 7:58 AM TREATMENT COORDINATOR Legal Sex Female 5:13 PM CDT Gender Identity Not on file Sexual Orientation Not on file documented as of this encounter Plan of Treatment Not on file documented as of this encounter Visit Diagnoses Not on filedocumented in this encounter Additional Health Concerns Infection Onset Date Last Indicated Resolved Time COVID-19 Rule Out 12/31/2023 12/31/2023 12/31/2023 3:40 PM CDT Respiratory Rule-Out 07/04/2024 07/04/2024 025 5:04 AM TREATMENT COORDINATOR Assessment Noted Time PHQ-9 Depression Total Score: 0 12/25/19 21 9:00 AM CDT documented as of this encounter Care Teams Proposal Development Manager Relationship Specialty Start Date End Date Nguyễn Matias MD [address] [address] PCP - General FAMILY PRACTICE 02/07/19 documented as of this encounter
--- OUTSIDE RECORDS SUMMARY | 2024-07-26 14:45 | XMS_ITS | Clinical Summary ---
Author Organization [facility] Address [address] [place] [address] Care Team Providers Care Signal Worker Name Role Phone Nguyễn Matias MD Primary Care Provider + [phone] Nguyễn Matias MD Unavailable [phone] Allergies No known active allergies Medications HYDROcodone-emmy taminophen (NORCO) 5-325 mg per tabletIndicatio ns:Pain Take 1 tablet by mouth every 6 (six) hours as needed for pain 12 tablet 2 Active ibuprofen (ADVIL,MOTRIN) 800 mg tablet Take 1 tablet (800 mg total) by mouth 3 (three) times a day as needed for pain 20 tablet 2 Active LORazepam (ATIVAN) 1 mg tablet Take 1 tablet (1 mg total) by mouth every 6 (six) hours as needed 3 Active dextroamphetami ne-amphetamine XR (ADDERALL XR) 20 mg 24 hr capsule Take 1 capsule (20 mg total) by mouth daily 3 Active escitalopram (LEXAPRO) 10 mg tablet Take 1 tablet (10 mg total) by mouth daily 3 Active ibuprofen 200 mg tab/cap Take 4 tablet/capsule (800 mg total) by mouth daily as needed for pain Active albuterol HFA (PROVENTIL HFA,VENTOLIN HFA,PROAIR HFA) 90 mcg/actuation inhaler Inhale 2 puffs every 6 (six) hours as needed for wheezing or shortness of breath Active peg 400-hypromellos e-glycerin (ARTIFICAL TEARS) 1-0.2-0.2 % ophthalmic solution Administer 1 drop into both eyes every 2 (two) hours as needed for dry eyes Active cyclobenzaprine (FLEXERIL) 10 mg tablet Take 1 tablet (10 mg total) by mouth 2 (two) times a day as needed for muscle spasms 20 tablet 3 Active Active Problems Problem Noted Date Diagnosed Date SIRS (systemic inflammatory response syndrome) 0 08/02/2022 Contracture of muscle of multiple sites 08/02/19 23 Hyperkalemia 08/01/2022 Hypocalcemia 08/01/2022 Polysubstance use disorder 08/01/2022 Heart murmur 08/01/2022 Sinus tachycardia 08/01/2022 Surgical History Surgery Date Site/Laterality Comments NO PAST SURGERIES Medical History Medical History Date Comments Hypokalemic periodic paralysis Adhd Marijuana use Social History Tobacco Use Types Packs/Day Years Used Date Smoking Tobacco: Never Tobacco Cessation:Counseling Given: Not Answered Personal Safety Answer Date Recorded Getting School Help Needed Not on file 11/17 Comments No Sex and Gender Information Value Date Recorded Sex Assigned at Not on file 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 Gender Identity Not on file Sexual Orientation Not on file Obstetrics History Last Filed Vital Signs Vital Sign Reading Time Taken Comments Blood Pressure 106/66 11/04/2022 10:00 AM CDT Pulse 113 11/04/2022 10:00 AM CDT Temperature 36.7 C (98.1 F) 11/04/2022 3:57 AM CDT Respiratory Rate 19 11/04/2022 8:00 AM CDT Oxygen Saturation 97% 11/04/2022 10:00 AM CDT Inhaled Oxygen Concentration - - Weight 52.2 kg (115 lb) 11/04/2022 3:57 AM CDT Height 165.1 cm (5' 5 ) 11/04/2022 3:57 AM CDT Body Mass Index 19.14 11/04/2022 3:57 AM CDT Plan of Treatment Health Maintenance Due Date Last Done Comments Depression Screening 1995 Varicella Vaccines (1 of 2 - 13+ 2-dose series) 12/19/2008 Regular Well Visit/Exam 18-64 12/19/2013 Pneumococcal vaccine <65 (1 of 2 - PCV) 12/19/2014 Cervical Cancer Screening 05/19/2023 05/19/2022 Covid-19 Vaccine (3 - season) 2023 10/08/2020, 09/17/2020 Influenza Vaccine (#1) 2023 2, 02/13/2020, 02/08/2013 DTaP/Tdap/Td Vaccine (6 - Td or Tdap) 04/12/2032 04/12/2022, 05/22/1997, 06/27/1996, Additional history exists Hepatitis B Screening Completed 06/27/1996 , 03/05/1996, 1995 Hepatitis C Screening Completed 08/02/2022 HPV Vaccines Aged Out No longer eligi ble based on patient's age to complete this topic Procedures Procedure Name Priority Date/Time Associated Diagnosis Comments HEPATITIS C ANTIBODY Routine 08/02/2022 12:20 PM CDT from Last 3 Months or Most Recently Relevant to Health Maintenance Results * Hepatitis C antibody (08/02/2022 12:20 PM CDT) Hep C Ab Nonreactive Nonreactive [facility] Comment: Interpretive Data Nonreactive: Antibodies to HCV not detected. Does NOT exclude the possibility of recent exposure to HCV. Equivocal: Equivocal for HCV antibodies. Supplemental molecular testing will be automatically performed to determine infection status in accordance with current CDC screening recommendations. Reactive: Positive for HCV antibodies. This may represent current or past HCV infection. Supplemental molecular testing will be automatically performed to determine current infection status in accordance with current CDC screening recommendations. Interpretive data was last revised on 2019. Blood 08/02/2022 12:2 0 PM CDT 08/02/2022 12:41 PM CDT us Maged Lockwood MD LAB MICROBIOLOGY - GENERAL O RDERABLES Final Result [facility] [address] [facility] Department [place] [address] from Last 3 Months or Most Recently Relevant to Health Maintenance Insurance IDPA [facility] IDPA Advance Directives For more information, please contact: [phone] * Full Code (Latest Code Status on File) Date Activated Date Inactivated Comments 08/01/2022 11:07 AM 08/02/2022 7:34 PM * Full Code Date Activated Date Inactivated Comments 08/01/2022 7:11 AM 08/01/2022 11:07 AM Care Teams Signal Worker Relationship Specialty Start Date End Date Nguyễn Matias MD [address]ia [address] [address] PCP - General Family Practice 06/14/22 Nguyễn Matias MD [address] [facility] [address] [place] [address] Family Practice 06/14/22
--- OUTSIDE RECORDS SUMMARY | 2024-07-26 14:45 | XMS_ITS | Encounter Summary ---
Author Organization [facility] Address [address] [place] [address] Care Team Providers Care Miner Name Role Phone Nguyễn Matias MD Primary Care Provider [phone] Encounter Details Date Type Department Care Team (Late st Contact Info) Description 08/19/2022 Twibingot Message Enc [facility] Medical [facility] Family Medicine - [place] [address], [address] [place] [phone] Nguyễn Matias MD [address] [facility] [address] [place] [phone] medication Social History Tobacco Use Types Packs/Day Years Used Date Smoking Tobacco: Former Cigarettes 0.3 3 0 05/01/2013 - 05/01/2016 Smokeless Tobacco: Never Comments:Former, Quit 2016 Alcohol Use Standard Drinks/Week Comments Not Currently 0 (1 standard drink = 0.6 oz pure alcohol) not daily, but more than socially AUDIT-C Answer Date Recorded Frequency of Alcohol Consumption Never 03/08/2018 Average Number of Drinks Not on file 018 Frequency of Binge Drinking Not on file 11/2017 PHQ-2 Answer Date Recorded Patient Health Questionnaire-2 Score 0 08/04/2022 Comments No Sex and Gender Information Value Date Recorded Sex Assigned at Female 05/24/2024 7:58 AM DRY CLEANER Legal Sex Female 5:13 PM CDT Gender Identity Not on file Sexual Orientation Not on file COVID-19 Exposure Response Date Recorded In the last 10 days, have yo u been in contact with someone who was confirmed or suspected to have Coronavirus/COVID-19? No / Unsure 08/04/2022 3:15 PM CDT documented as of this encounter Plan of Treatment Not on file documented as of this encounter Visit Diagnoses Not on filedocumented in this encounter Additional Health Concerns Infection Onset Date Last Indicated Resolved Time COVID-19 Rule Out 12/31/2023 12/31/2023 12/31/2023 3:40 PM CDT Respiratory Rule-Out 07/04/2024 07/04/2024 025 5:04 AM DRY CLEANER Assessment Noted Time PHQ-9 Depression Total Score: 7 08/05/19 23 4:43 PM CDT documented as of this encounter Care Teams Miner Relationship Specialty Start Date End Date Nguyễn Matias MD [address] [address] [place] [address] PCP - General FAMILY PRACTICE 02/07/19 documented as of this encounter
--- OUTSIDE RECORDS SUMMARY | 2024-07-26 14:45 | XMS_ITS | Encounter Summary ---
Author Organization [facility] Address [address] [place] [address] Care Team Providers Care Low Voltage Technician Name Role Phone Nguyễn Matias MD Primary Care Provider [phone] Encounter Details Date Type Department Care Team (Late st Contact Info) Description 06/17/[address] [facility] Family Medicine - [place] [address], [address] [place] [phone] Nguyễn Matias MD [address] [facility] [address] [place] [phone] Need Seen Sooner Social History Tobacco Use Types Packs/Day Years [...] Answer Date Recorded Patient Health Questionnaire-2 Score 1 05/19/2022 Comments No Sex and Gender Information Value Date Recorded Sex Assigned at Female 05/24/2024 7:58 AM BLUEPRINT MAKER Legal Sex Female 5:13 PM CDT Gender Identity Not on file Sexual Orientation Not on file COVID-19 Exposure Response Date Recorded In the last 10 days, have yo u been in contact with someone who was confirmed or suspected to have Coronavirus/COVID-19? No / Unsure 06/01/2022 10:55 AM BLUEPRINT MAKER documented as of this encounter Plan of Treatment Not on file documented as of this encounter Visit Diagnoses Not on filedocumented in this encounter Additional Health Concerns Infection Onset Date Last Indicated Resolved Time COVID-19 Rule Out 12/31/2023 12/31/2023 12/31/2023 3:40 PM CDT Respiratory Rule-Out 07/04/2024 07/04/2024 025 5:04 AM BLUEPRINT MAKER Assessment Noted Time PHQ-9 Depression Total Score: 1 05/19/19 23 11:52 AM BLUEPRINT MAKER documented as of this encounter Care Teams Low Voltage Technician Relationship Specialty Start Date End Date Nguyễn Matias MD [address] [address] [place] [address] PCP - General FAMILY PRACTICE 02/07/19 documented as of this encounter
--- OUTSIDE RECORDS SUMMARY | 2024-07-26 14:45 | XMS_ITS | Referral Summary ---
Author Organization [facility] Address [address] [place] [address] Care Team Providers Care Silverlight Developer Name Role Phone Nguyễn Matias MD Primary Care Provider + [phone] Nguyễn Matias MD Unavailable [phone] Allergies No known active allergies Medications HYDROcodone-emmy [...] 08/01/2022 Heart murmur 08/01/2022 Sinus tachycardia 08/01/2022 Social History Tobacco Use Types Packs/Day Years Used Date Smoking Tobacco: Never Tobacco Cessation:Counseling Given: Not Answered Personal Safety Answer Date Recorded Getting School Help Needed Not on file 11/17 Comments No Sex and Gender Information Value Date Recorded Sex Assigned at Not on file 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 Gender Identity Not on file Sexual Orientation [...] 11/04/2022 3:57 AM CDT Plan of Treatment Not on file Procedures Procedure Name Priority Date/Time Associated Diagnosis [...] - GENERAL O RDERABLES Final Result [facility] [address] [facility] Department [place] [address] from Last 3 Months or Most Recently Relevant to Health Maintenance Insurance ID[facility] [address] [employer]VA Advance Directives For more information, please contact: [phone] * Full Code (Latest Code Status on File) Date Activated Date Inactivated Comments 08/01/2022 11:07 AM 08/02/2022 7:34 PM * Full Code Date Activated Date Inactivated Comments 08/01/2022 7:11 AM 08/01/2022 11:07 AM Care Teams Silverlight Developer Relationship Specialty Start Date End Date Nguyễn Matias MD [address] [address] PCP - General Family Practice 06/14/22 Nguyễn Matias MD [address] [address] Family Practice 06/14/22
--- NOTE | 2024-07-26 16:15 | PC.NURSE ---
Patient asked to have IV taken out and ambulated out of department with steady gate. Patient A&Ox4 upon leaaving
--- OUTSIDE RECORDS SUMMARY | 2024-07-26 17:31 | XMS_ITS | Clinical Summary ---
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 [place] [address] Jaylen Medel MD,PHD Fouzia Albarran MD Suicidal Ideation Discharge Disposition: Home or Self Care (Routine Discharge) 07/04/2024 Travel 05/24/2024 8:26 AM DIRECTOR OF INCOME TAX - 05/24/2024 9:57 AM DIRECTOR OF INCOME TAX Emergency [facility] [place] [address] Susan Barrera PA Musculoskeletal Problem Discharge Disposition: [...] Sex Assigned at Female 05/24/2024 7:58 AM DIRECTOR OF INCOME TAX Legal Sex Female 5:13 PM CDT Gender Identity Not on file Sexual Orientation Not on file Last Filed Vital Signs Vital Sign Reading Time Taken Comments Blood Pressure 117/87 07/04/2024 3:11 PM DIRECTOR OF INCOME TAX Pulse 105 07/04/2024 3:11 PM DIRECTOR OF INCOME TAX Temperature 37.4 C (99.3 F) 07/04/2024 3:11 PM DIRECTOR OF INCOME TAX Respiratory Rate 19 07/04/2024 3:23 AM DIRECTOR OF INCOME TAX Oxygen Saturation 100% 07/04/2024 3:11 PM DIRECTOR OF INCOME TAX Inhaled Oxygen Concentration - - Weight 63.5 kg (140 lb) 07/04/2024 3:23 AM DIRECTOR OF INCOME TAX Height 167.6 cm (5' 6 ) 07/04/2024 3:23 AM DIRECTOR OF INCOME TAX Body Mass Index 22.6 07/04/2024 3:23 AM DIRECTOR OF INCOME TAX Plan of Treatment Health Maintenance Due Date Last Done Comments Pneumococcal Vaccine: Pediatrics (0 to 5 Years) and At-Risk Patients (6 to 64 Years) (1 of 2 - PCV) 12/19/2001 Hepatitis B Vaccines (1 of 3 - 19+ 3-dose series) 12/19/2014 Annual Physical 05/28/2021 05/28/2020 COVID-19 Vaccine (2023- season) 2023 10/08/2020, 09/17/2020 Influenza Adult (#1) 2024 04/12/2022, 02/13/2020, 02/08/2013 PHQ-2 (Physician [place]) 05/01/2024 10/26/2023 Cervical Cancer Screening Pap Smear [...] this topic Medical Devices Implanted Type Area Cut Off [employer] Device Identifier Shelf Expiration Date Model / Serial / Lot Truespan Meniscal Repair System Implanted:Qty: 1 on 10/05/2021 by Gordon Heller MD at [facility] [employer] Right: Knee [id number] 02/29/2024 [id number] / / [id number] Truespan Meniscal Repair System Implanted:Qty: 1 on 10/05/2021 by Gordon Heller MD at [facility] [employer] Right: Knee [id number] 07/30/2023 [id number] / / [id number] Procedures Procedure Name Priority Date/Time Associated Diagnosis Comments ETHANOL STAT 07/04/2024 2:00 PM DIRECTOR OF INCOME TAX DRUG SCREEN RAPID STAT 07/04/2024 4:3 2 AM DIRECTOR OF INCOME TAX POCT URINE (BACK OFFICE) STAT 07/04/2024 4:31 AM DIRECTOR OF INCOME TAX THYROXINE, FREE (FT4) STAT 07/04/2024 3:45 AM DIRECTOR OF INCOME TAX THYROID STIM HORMONE TSH STAT 07/04/2024 3:45 AM DIRECTOR OF INCOME TAX SALICYLATE STAT 07/04/2024 3:45 AM DIRECTOR OF INCOME TAX ACETAMINOPHEN STAT 07/04/2024 3:45 AM DIRECTOR OF INCOME TAX ETHANOL STAT 07/04/2024 3:45 AM DIRECTOR OF INCOME TAX MAGNESIUM STAT 07/04/2024 3:45 AM DIRECTOR OF INCOME TAX COMPREHENSIVE METABOLIC PANEL STAT 07/04/2024 3:45 AM DIRECTOR OF INCOME TAX CBC W/DIFF AUTOMATED STAT 07/04/2024 3:45 AM DIRECTOR OF INCOME TAX RESPIRATORY PCR PANEL 2 STAT 07/04/2024 3:35 AM DIRECTOR OF INCOME TAX CK (CPK) STAT 05/24/2024 8:31 AM DIRECTOR OF INCOME TAX COMPREHENSIVE METABOLIC PANEL STAT 05/24/2024 8:31 AM DIRECTOR OF INCOME TAX CBC W/DIFF AUTOMATED STAT 05/24/2024 8:31 AM DIRECTOR OF INCOME TAX HEPATITIS C ANTIBODY Routine 10/27/2023 3:50 PM CDT Healthcare maintenance Screening for diabetes mellitus (DM) Attention deficit hyperactivity disorder (ADHD), predominantly inattentive type Generalized anxiety disorder Seborrheic dermatitis Encounter for hepatitis C screening test for low risk patient Panic disorder Moderate persistent asthma without complication (HHS/HCC) Irregular periods CYTOPATH CERV/VAG THIN LAYER Routine 05/19/2022 9:16 AM DIRECTOR OF INCOME TAX from Last 3 Months or Most Recently Relevant to Health Maintenance Results * (ABNORMAL) ETHANOL (07/04/2024 2:00 PM DIRECTOR OF INCOME TAX) Only the most recent of2 resultswithin the time period is included. Pathologist [facility] ALCOHOL S/P/B 0.056(H) <0.003 G/DL 07/04/2024 2:28 PM DIRECTOR OF INCOME TAX [facility] 07/04/2024 2:00 PM DIRECTOR OF INCOME TAX us Jaylen Medel MD,PHD LABORATORY Final Resu lt [facility] [address] [place] [address], [place] [phone] * (ABNORMAL) DRUG SCREEN RAPID (07/04/2024 4:32 AM DIRECTOR OF INCOME TAX) AMPHETAMINE (U) NEGATIVE NEGATIVE 5:18 AM DIRECTOR OF INCOME TAX [facility] BARBITURATES SCREEN (U) NEGATIVE NEGATIVE 07/04/2024 5:18 AM DIRECTOR OF INCOME TAX [facility] BENZODIAZEPINES SCREEN (U) NEGATIVE NEGATIVE 07/04/2024 5:18 AM DIRECTOR OF INCOME TAX [facility] CANNABINOIDS SCREEN (U) POSITIVE(A) NEGATIVE 07/04/2024 5:18 AM DIRECTOR OF INCOME TAX [facility] COCAINE METABOLITES (U) NEGATIVE NEGATIVE 07/04/2024 5:18 AM [facility] METHADONE (U) NEGATIVE NEGATIVE 07/04/2024 5:18 AM [facility] OPIATE SCREEN (U) NEGATIVE NEGATIVE 025 5:18 AM [facility] PHENCYCLIDINE PCP (U) NEGATIVE NEGATIVE 07/04/2024 5:18 AM [facility] Comment: NOTE: RESULTS OF THIS DRUG SCREEN SHOULD BE USED FOR MEDICAL PURPOSES ONLY AND NOT FOR LEGAL OR EMPLOYMENT PURPOSES. POSITIVE RESULTS ARE NOT CONFIRMED. MEDICATIONS CONTAINING EPHEDRINE MAY CAUSE FALSE POSITIVE AMPHETAMINE CALL [phone], LAB, TO REQUEST CONFIRMATION TESTING. IF CREATININE IS <40 mg/dL. RECOLLECTION IS SUGGESTED. AMPHETAMINE- 500 NG/ML BARBITURATE- 200 NG/ML BENZODIAZEPINES- 200 NG/ML THC- 50 NG/ML COCAINE- 150 NG/ML METHADONE- 300 NG/ML OPIATE- 300 MG/ML PCP- 25 NG/ML CREATININE (U) 119.0 28 - 217 MG/DL 07/04/2024 5:18 AM [facility] URINE SPECIMEN / Unknown 07/04/2024 4:32 AM DIRECTOR OF INCOME TAX us Jaylen Medel MD,PHD URINE ORDERABLES Final Res ult [facility] [address] [place] [address], [place] [phone] * POCT urine (07/04/2024 4:31 AM DIRECTOR OF INCOME TAX) URINE HCG TEST NEGATIVE Internal Control: VALID us Jaylen Medel MD,PHD POINT OF CARE TEST ORDERAB LES Final Result * (ABNORMAL) COMPREHENSIVE METABOLIC PANEL (07/04/2024 3:45 AM DIRECTOR OF INCOME TAX) Only the most recent of2 resultswithin the time period is included. GLUCOSE 105(H) 70 - 99 MG/DL 07/04/2024 4:35 AM [facility] BUN 7 7 - 18 MG/DL 07/04/2024 4:35 AM [facility] CREATININE S/P/B 0.70 0.55 - 1.02 MG/DL 07/04/2024 4:35 AM [facility] SODIUM S/P/B 142 136 - 145 MMOL/L 07/04/2024 4:35 AM [facility] POTASSIUM S/P/B 3.7 3.5 - 5.1 MMOL/L 07/04/2024 4:35 AM [facility] CHLORIDE S/P/B 111 97 - 115 MMOL/L 07/04/2024 4:35 AM [facility] CO2 27.4 21 - 32 MMOL/L 07/04/2024 4:35 AM [facility] CALCIUM S/P/B 8.4(L) 8.5 - 10.1 MG/DL 07/04/2024 4:35 AM [facility] BILIRUBIN TOTAL S/P/B 0.5 0.2 - 1.2 MG/DL 07/04/2024 4:35 AM [facility] Comment: THIS ASSAY IS NOT RECOMMENDED FOR PATIENTS UNDERGOING TREATMENT WITH ELTROMBOPAG DUE TO THE POTENTIAL FOR FALSELY ELEVATED RESULTS. TOTAL PROTEIN S/P/B 7.3 6.4 - 8.2 G/DL 07/04/2024 4:35 AM [facility] ALBUMIN S/P/B 3.8 3.4 - 5.0 G/DL 07/04/2024 4:35 AM [facility] AST 20 15 - 37 U/L 07/04/2024 4:35 AM [facility] ALT 24 14 - 55 U/L 07/04/2024 4:35 AM [facility] ALKALINE PHOSPHATASE S/P/B 52 50 - 136 U/L 07/04/2024 4:35 AM DIRECTOR OF INCOME TAX [facility] ANION GAP 3.6 2 - 10 MMOL/L 07/04/2024 4:35 AM [facility] BUN CREATININE RATIO 10.1 6 - 26 07/04/2024 4:35 AM [facility] A/G RATIO 1.1 1.0 - 2.0 RATIO 07/04/2024 4:35 AM [facility] GFR ESTIMATE >90 >90 ML/MIN/1.7 3 M2 07/04/2024 4:35 AM [facility] Comment: NOTE: eGFR is not calculated for patients <18 years of age or gender unknown. This is an estimated GFR calculation using the new CKD EPI creatinine equation without race and so does not require a correction factor for race. This estimated GFR should not be used for calculating drug doses. 07/04/2024 3:45 AM DIRECTOR OF INCOME TAX us Jaylen Medel MD,PHD LABORATORY Final Resu lt [facility] [address] [place] [address], [place] [phone] * CBC W/DIFF AUTOMATED (07/04/2024 3:45 AM DIRECTOR OF INCOME TAX) Only the most recent of2 resultswithin the time period is included. WBC 5.97 4.5 - 11.0 x10'3/uL 07/04/2024 3:57 AM DIRECTOR OF INCOME TAX [facility] RBC 4.21 4.20 - 5.40 x10'6/uL 07/04/2024 3:57 AM DIRECTOR OF INCOME TAX [facility] HGB 13.0 12.0 - 16.0 G/DL 07/04/2024 3:57 AM DIRECTOR OF INCOME TAX [facility] HCT 38.7 38.0 - 48.0 % 07/04/2024 3:57 AM [facility] MCV 91.9 81.0 - 99.0 FL 07/04/2024 3:57 AM [facility] MCH 30.9 27.0 - 31.0 PG 07/04/2024 3:57 AM [facility] MCHC 33.6 32.0 - 36.0 G/DL 07/04/2024 3:57 AM [facility] RDW 13.0 11.5 - 14.5 % 07/04/2024 3:57 AM [facility] PLT 350 130 - 400 x10'3/uL 07/04/2024 3:57 AM [facility] MPV 10.3 9.3 - 12.2 FL 07/04/2024 3:57 AM [facility] DIFFERENTIAL TYPE AUTOMATED DIFFERENTIAL 07/04/2024 3:57 AM [facility] NEUTROPHILS % 56.4 % 07/04/2024 3:57 AM [facility] LYMPHOCYTES % 36.2 % 07/04/2024 3:57 AM [facility] MONOCYTES % 5.9 % 07/04/2024 3:57 AM [facility] EOSINOPHILS 0.8 % 07/04/2024 3:57 AM [facility] BASOPHILS 0.5 % 07/04/2024 3:57 AM [facility] IMMATURE GRANS % 0.2 % 07/05/19 3:57 AM [facility] ABS. NEUTROPHILS 3.37 1.80 - 7.70 x10'3/uL 07/04/2024 3:57 AM [facility] ABS. LYMPHOCYTES 2.16 1.00 - 4.80 x10'3/uL 07/04/2024 3:57 AM DIRECTOR OF INCOME TAX [facility] ABS. MONOCYTES 0.35 0.24 - 0.86 x10'3/uL 07/04/2024 3:57 AM DIRECTOR OF INCOME TAX [facility] ABS. EOSINOPHILS 0.05 0.04 - 0.36 x10'3/uL 07/04/2024 3:57 AM DIRECTOR OF INCOME TAX [facility] ABS. BASOPHILS 0.03 0.01 - 0.08 x10'3/uL 07/04/2024 3:57 AM DIRECTOR OF INCOME TAX [facility] ABS. IMMATURE GRANULOCYTES 0.01 0.00 - 0.49 x10'3/uL 07/04/2024 3:57 AM DIRECTOR OF INCOME TAX [facility] 07/04/2024 3:45 AM DIRECTOR OF INCOME TAX us Jaylen Medel MD,PHD LABORATORY Final Resu lt [facility] [address] [place] [address], * THYROXINE, FREE (FT4) (07/04/2024 3:45 AM DIRECTOR OF INCOME TAX) FREE T4 0.92 0.76 - 1.46 NG/DL 07/04/2024 4:35 AM DIRECTOR OF INCOME TAX [facility] 07/04/2024 3:45 AM DIRECTOR OF INCOME TAX us Jaylen Medel MD,PHD LABORATORY Final Resu lt [facility] [address] [place], [place] [address], [place] [phone] * THYROID STIM HORMONE TSH (07/04/2024 3:45 AM DIRECTOR OF INCOME TAX) TSH 1.320 0.358 - 3.74 uIU/ML 07/04/2024 4:35 AM DIRECTOR OF INCOME TAX [facility] Comment: HIGH DOSES OF BIOTIN MAY INTERFERE WITH THIS TEST RESULT. CORRELATION TO CLINICAL HISTORY AND PRESENTATION RECOMMENDED. 07/04/2024 3:45 AM DIRECTOR OF INCOME TAX Jaylen Medel MD,PHD LABORATORY Final [facility] Performing Organization Address [facility] Co de Phone Number [facility] [address] [place] [address], * MAGNESIUM (07/04/2024 3:45 AM DIRECTOR OF INCOME TAX) MAGNESIUM 1.9 1.8 - 2.4 MG/DL 07/04/2024 4:35 AM DIRECTOR OF INCOME TAX [facility] 07/04/2024 3:45 AM DIRECTOR OF INCOME TAX Jaylen Medel MD,PHD LABORATORY Final [facility] Performing Organization Address [facility] Co de Phone Number [facility] [address] [place] [address], * (ABNORMAL) SALICYLATE (07/04/2024 3:45 AM DIRECTOR OF INCOME TAX) SALICYLATES <1.7(L) 2.8 - 20.0 MG/DL 07/04/2024 4:14 AM DIRECTOR OF INCOME TAX [facility] Comment: THERAPEUTIC: 2.8-20.0 Toxic Level: >=30 07/04/2024 3:45 AM DIRECTOR OF INCOME TAX us Jaylen Medel MD,PHD LABORATORY Final [facility] Performing Organization Address [facility] Co de Phone Number [facility] [address] [place] [address], [place] [phone] * (ABNORMAL) ACETAMINOPHEN (07/04/2024 3:45 AM DIRECTOR OF INCOME TAX) [facility] ACETAMINOPHEN S/P/B <2.0(L) 10.0 - 30.0 MCG/ML 07/04/2024 4:35 AM DIRECTOR OF INCOME TAX [facility] Comment: THERAPEUTIC: 10-30 TOXIC: >200 07/04/2024 3:45 AM DIRECTOR OF INCOME TAX Jaylen Medel MD,PHD LABORATORY Final Resu lt [facility] [address] [place] [address], * RESPIRATORY PCR PANEL 2 (07/04/2024 3:35 AM DIRECTOR OF INCOME TAX) [facility] ADENOVIRUS PCR (RESP) NOT DETECTED NOT DETECTED 07/04/2024 5:03 AM [facility] CORONAVIRUS 229E PCR (RESP) NOT DETECTED NOT DETECTED 07/04/2024 5:03 AM [facility] CORONAVIRUS HKU1 PCR (RESP) NOT DETECTED NOT DETECTED 07/04/2024 5:03 AM [facility] CORONAVIRUS NL63 PCR (RESP) NOT DETECTED NOT DETECTED 07/04/2024 5:03 AM [facility] CORONAVIRUS OC43 PCR (RESP) NOT DETECTED NOT DETECTED 07/04/2024 5:03 AM [facility] METAPNEUMOVIRUS PCR (RESP) NOT DETECTED NOT DETECTED 07/04/2024 5:03 AM [facility] RHINOVIRUS/ENTEROV IRUS PCR (RESP) NOT DETECTED NOT DETECTED 07/04/2024 5:03 AM [facility] INFLUENZA A PCR (RESP) NOT DETECTED NOT DETECTED 07/04/2024 5:03 AM DIRECTOR OF INCOME TAX [facility] INFLUENZA B PCR (RESP) NOT DETECTED NOT DETECTED 07/04/2024 5:03 AM [facility] PARAINFLUENZA 1 PCR (RESP) NOT DETECTED NOT DETECTED 07/04/2024 5:03 AM [facility] PARAINFLUENZA 2 PCR (RESP) NOT DETECTED NOT DETECTED 07/04/2024 5:03 AM DIRECTOR OF INCOME TAX [facility] PARAINFLUENZA 3 PCR (RESP) NOT DETECTED NOT DETECTED 07/04/2024 5:03 AM [facility] PARAINFLUENZA 4 PCR (RESP) NOT DETECTED NOT DETECTED 07/04/2024 5:03 AM [facility] RSV PCR (RESP) NOT DETECTED NOT DETECTED 07/04/2024 5:03 AM [facility] B PARAPERTUSIS PCR (RESP) NOT DETECTED NOT DETECTED 07/04/2024 5:03 AM [facility] BORDETELLA PERTUSSIS PCR (RESP) NOT DETECTED NOT DETECTED 07/04/2024 5:03 AM [facility] CHLAMYDOPHILA PNEUMONIAE PCR (RESP) NOT DETECTED NOT DETECTED 07/04/2024 5:03 AM [facility] MYCOPLASMA PNEUMONIAE PCR (RESP) NOT DETECTED NOT DETECTED 07/04/2024 5:03 AM [facility] CORONAVIRUS SARS COV 2 PCR (RESP) NOT DETECTED NOT DETECTED 07/04/2024 5:03 AM [facility] NASOPHARYNGEAL SWAB / Unknown 07/04/2024 3:35 AM DIRECTOR OF INCOME TAX Jaylen Medel MD,PHD MICROBIOLOGY - GENERAL ORD ERABLES Final Result [facility] [address] [place] [address], * CK (CPK) (05/24/2024 8:31 AM DIRECTOR OF INCOME TAX) CPK 156 21 - 215 U/L 05/24/2024 9:09 AM DIRECTOR OF INCOME TAX [facility] 05/24/2024 8:31 AM DIRECTOR OF INCOME TAX Susan GARCIA LABORATORY Final Resul t [facility] [address] [place] [address], * HEPATITIS C ANTIBODY (10/27/2023 3:50 PM CDT) HEPATITIS C AB NON-REACTI VE NON-REACTI VE 10/27/2023 5:15 PM CDT [facility] 10/27/2023 3:50 PM CDT Nguyễn Matias MD LABORATORY Final Result [facility] [address] [place] [address], * Cytopath Cerv/Vag Thin Layer (05/19/2022 9:16 AM DIRECTOR OF INCOME TAX) THIN PREP PAP [address] [phone] Department of Pathology Pathology Report CERVICAL/VAGINAL PAP SMEAR REPORT Name: DELMI ERAZO Age: 8 1995 (Age: 26) Location: [facility] Sex: F Collected Date: 05/19/2022 [facility] #: [id number] Date Received: 05/23/2022 Date Reported: 05/24/2022 Provider: NGUYỄN MATIAS MD INTERPRETATION CERVICAL/ENDOCERVI IVVIAN: SATISFACTORY FOR EVALUATION. ENDOCERVICAL/TRANS FORMATION ZONE COMPONENT [...] is not effective in detecting cervical adenocarcinoma. [facility] 05/19/2022 9:16 AM DIRECTOR OF INCOME TAX 05/23/2022 9:16 AM DIRECTOR OF INCOME TAX Comment:CERVICAL/ENDOCERVICA L us Nguyễn Matias MD PATHOLOGY/CYTOLOGY ORDERABLES Final Result [facility] [address] [place] [address], from Last 3 Months or Most Recently Relevant to Health Maintenance Insurance [facility] Care Teams Access Liaison Relationship Specialty Start Date End Date Nguyễn Matias MD [address] [address] PCP - General FAMILY PRACTICE 02/07/19
--- OUTSIDE RECORDS SUMMARY | 2024-07-26 17:31 | XMS_ITS | Encounter Summary ---
Author Organization [facility] Address [address] [place] [address] Care Team Providers Care Head Of Music Name Role Phone Nguyễn Matias MD Primary Care Provider [phone] Encounter Details Date Type Department Care Team (Late st Contact Info) Description 08/19/2022 Opsenst Message Enc [facility] Family Medicine - [place] [address], [address] [place] [phone] Nguyễn Matias MD [address] [place] [address] [place] [address] [phone] medication Social History Tobacco Use Types Packs/Day [...] Sex Assigned at Female 05/24/2024 7:58 AM RHEOLOGIST Legal Sex Female 5:13 PM CDT Gender [...] Respiratory Rule-Out 07/04/2024 07/04/2024 025 5:04 AM RHEOLOGIST Assessment Noted Time PHQ-9 Depression Total Score: 7 08/05/19 23 4:43 PM CDT documented as of this encounter Care Teams Head Of Music Relationship Specialty Start Date End Date Nguyễn Matias MD [address] [address] [place] [address] PCP - General FAMILY PRACTICE 02/07/19 documented as of this encounter
--- OUTSIDE RECORDS SUMMARY | 2024-07-26 17:32 | XMS_ITS | Clinical Summary ---
Author Organization [facility] Care Team Providers Care Insulation Installer Name Role Phone Unavailable Primary Care Provider Unavailabl e Social History Tobacco Use Types Packs/Day Years Used Date Smoking Tobacco: Never Assessed Comments Unknown Sex and Gender Information Value Date Recorded Sex Assigned at Not on file Legal Sex Female 12:14 PM REAMING PRESS OPERATOR Gender Identity Not on file Sexual Orientation [...]
--- OUTSIDE RECORDS SUMMARY | 2024-07-26 17:32 | XMS_ITS | Clinical Summary ---
Author Organization [facility] [employer] Address [address] [place] [address] Care Team Providers Care Revenue Manager Name Role Phone Nguyễn Matias MD Primary Care Provider Source Comments [employer],non-owned Affiliates and Associated Physician Practices is amultiple site organization consisting of ambulatory clinics and hospital sitesin [place], [place], [place] and [place]. This disclosure is being madepursuant to the Care Everywhere program and may not contain all information available regarding this patient. Last updated 18.[employer] Medications * Be aware that medications may [...] PCR (01/13/2017 11:19 AM CDT) Pathologist [facility] Hepatitis C Virus RNA PCR Accession No: [id number] Specimen: Serum Reference: [id number] Test: Hepatitis C RT-PCR (Quantitative) RESULT Not Detected HCV genotyping not performed due to viral load <500 IU/ml. Reference Range Not Detected INTERPRETATION The quantitative Hepatitis C viral RNA RT-PCR determination was performed on a serum sample and is reported in IU/ml. Hepatitis C viral RNA was not detected. COMMENT The Hepatitis C viral (HCV) RNA analysis utilized a serum sample, real-time reverse sample maker original PCR, and is reported as Not Detected, [...] the isolation of HCV RNA with reverse sample maker original of genomic HCV RNA followed by real-time PCR in the presence of an unrelated RNA internal control. The internal control ensures that RNA is isolated, and that no general significant inhibitors of the RT-PCR process are present. This analysis was performed using an [place] FDA approved test methodology ([employer] RealTime HCV). Test performed at [facility], [address] [place] [address] This case has been personally reviewed and interpreted by the attending (teaching) pathologist. Final Diagnosis performed by Jonathan Orellana PHD. Electronically signed 01/21/2017 [facility] Blood specimen (specimen) BLOOD SPECIMEN / Unknown 01/13/2017 11:19 AM CDT 01/13/2017 11:32 AM CDT Delmi Rodriguez PA-C LAB - CHEMISTRY O RDKASSIDY [facility] from Last 3 Months or Most Recently Relevant to Health Maintenance Care Teams Revenue Manager Relationship Specialty Start Date End Date Nguyễn Matias MD [address] [id number] PCP - General 02/27/20
--- OUTSIDE RECORDS SUMMARY | 2024-07-26 17:32 | XMS_ITS | Clinical Summary ---
Author Organization [facility] Address [address] [place] [address] Care Team Providers Care Desktop Technician Name Role Phone Nguyễn Matias MD Primary Care Provider + [phone] Nguyễn Matias MD Unavailable [phone] Allergies No known active allergies Medications HYDROcodone-emmy [...] on file Legal Sex Female 8:51 PM ULTRASOUND TESTER Gender Identity Not on file Sexual Orientation [...] - GENERAL O RDERABLES Final Result [facility] [address] [facility] Department [place] [address] from Last 3 Months or Most Recently Relevant to Health Maintenance Insurance IDPA [facility] [place] [employer] IDPA Advance Directives For more information, please contact: [phone] * Full Code (Latest Code Status on File) Date Activated Date Inactivated Comments 08/01/2022 11:07 AM 08/02/2022 7:34 PM * Full Code Date Activated Date Inactivated Comments 08/01/2022 7:11 AM 08/01/2022 11:07 AM Care Teams Desktop Technician Relationship Specialty Start Date End Date Nguyễn Matias MD Jania ARREAGA [address] [address] PCP - General Family Practice 06/14/22 Nguyễn Matias MD [address] [facility] [address] [place] [address] Family Practice 06/14/22
--- OUTSIDE RECORDS SUMMARY | 2024-07-26 17:32 | XMS_ITS | Encounter Summary ---
Author Organization [facility] Address [address] [place] [address] Care Team Providers Care Industrial Order Clerk Name Role Phone Nguyễn Matias MD Primary Care Provider [phone] Encounter Details Date Type Department Care Team (Late st Contact Info) Description 05/17/2021 MyCSnabbotekett Message Enc [facility] Family Medicine - [place] [address] [facility], [address] [place] [phone] Nguyễn Matias MD [address] [facility] [address] [place], [place] [phone] COVID Rapid Test Social History Tobacco Use [...] Sex Assigned at Female 05/24/2024 7:58 AM CLINICAL SYSTEMS EDUCATOR Legal Sex Female 5:13 PM CDT Gender [...] Respiratory Rule-Out 07/04/2024 07/04/2024 025 5:04 AM CLINICAL SYSTEMS EDUCATOR Assessment Noted Time PHQ-9 Depression Total Score: 0 12/25/19 21 9:00 AM CDT documented as of this encounter Care Teams Industrial Order Clerk Relationship Specialty Start Date End Date Nguyễn Matias MD [address] [address] PCP - General FAMILY PRACTICE 02/07/19 documented as of this encounter
--- OUTSIDE RECORDS SUMMARY | 2024-07-26 17:32 | XMS_ITS | Encounter Summary ---
Author Organization [facility] Address [address] [place] [address] Care Team Providers Care Wood Boat Builder Supervisor Name Role Phone Nguyễn Matias MD Primary Care Provider [phone] Encounter Details Date Type Department Care Team (Late st Contact Info) Description 06/17/2022 Spanlink Communicationst Message Enc [facility] Family Medicine - [place] [address], [address] [place] [phone] Nguyễn Matias MD [address] [facility] [address] [place] [phone] Need Seen Sooner Social History Tobacco Use [...] Sex Assigned at Female 05/24/2024 7:58 AM SHIFT COORDINATOR Legal Sex Female 5:13 PM CDT Gender Identity Not on file Sexual Orientation Not on file COVID-19 Exposure Response Date Recorded In the last 10 days, have yo u been in contact with someone who was confirmed or suspected to have Coronavirus/COVID-19? No / Unsure 06/01/2022 10:55 AM SHIFT COORDINATOR documented as of this encounter Plan of Treatment Not on file documented as of this encounter Visit Diagnoses Not on filedocumented in this encounter Additional Health Concerns Infection Onset Date Last Indicated Resolved Time COVID-19 Rule Out 12/31/2023 12/31/2023 12/31/2023 3:40 PM CDT Respiratory Rule-Out 07/04/2024 07/04/2024 025 5:04 AM SHIFT COORDINATOR Assessment Noted Time PHQ-9 Depression Total Score: 1 05/19/19 23 11:52 AM SHIFT COORDINATOR documented as of this encounter Care Teams Wood Boat Builder Supervisor Relationship Specialty Start Date End Date Nguyễn Matias MD [address] [address] [place] [address] PCP - General FAMILY PRACTICE 02/07/19 documented as of this encounter
--- OUTSIDE RECORDS SUMMARY | 2024-07-26 17:32 | XMS_ITS | Referral Summary ---
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 [address] [address] IDDE Advance Directives For more information, please contact: [phone] * Full Code (Latest Code Status on File) Date Activated Date Inactivated Comments 08/01/2022 11:07 AM 08/02/2022 7:34 PM * Full Code Date Activated Date Inactivated Comments 08/01/2022 7:11 AM 08/01/2022 11:07 AM Care Teams Chemical Reclamation Equipment Operator Relationship Specialty Start Date End Date Nguyễn Matias MD [address] [address] PCP - General Family Practice 06/14/22 Nguyễn Matias MD [address] [address] Family Practice 06/14/22
== END 2024-07-26 17:32 | disposition left against medical advice (07) ==
LOC: ANHED 17:30
PROVIDERS: PCP Family Medicine
DX: R25.2 Cramp and spasm (principal)
CPT/HCPCS: 99199

== ENCOUNTER 2025-01-10 12:32 | Emergency (ER) | payer SELFPAY ==
[2025-01-10] VITALS (18 sets, daily range): BP systolic 103–147; BP diastolic 72–91; PULSE 101–140; RESP 16–26; TEMP 36.7; O2SAT 97–100
--- NOTE | 2025-01-10 12:40 | ECG_ITS ---
Test Date: 2025-01-10 12:45:39 Measurements Intervals [place] Rate: 113 P: 80 WY: 122 QRS: 53 QRSD: 86 T: 7 QT: 330 QTc: 454 Interpretive Statements SINUS TACHYCARDIA BASELINE ARTIFACT PREVENTS ACCURATE INTERPRETATION No previous ECG available for comparison Electronically Signed On 01-10-2025 15:44:21 CDT by Gio Denny M.D.
[2025-01-10 13:06] LABS: Hematocrit 39.4 % (37.0-47.0); Hemoglobin 12.9 g/dL (12.0-15.0); Immature Granulocyte Percent A 0.4 % (0-0.5); Lymphocytes Absolute Auto 1.70 K/mm3 (0.9-3.2); Mean Corpuscular HGB Conc 32.7 g/dl (32-36); Mean Corpuscular Hemoglobin 32.2 pg (26-34); Mean Corpuscular Volume 98.3 fl (80-100); Nucleated Red Blood Cells Absolute Auto 0.000 K/mm3 (0.0-0.012); Nucleated Red Blood Cells Perc 0.0 % (0.0-0.2); Platelet Count Result 429 k/mm3 (150-375); Red Blood Count 4.01 M/mm3 (4.2-5.4); White Blood Count 5.7 K/mm3 (4.5-10.0)
[2025-01-10 13:21] LABS: Alanine Aminotransferase 45 U/L (6-35); Albumin Level 4.4 g/dL (3.5-5.1); Alkaline Phosphatase 85 U/L (38-126); Anion Gap 11 mmol/L (4-12); Aspartate Amino Transferase 67 U/L (14-36); Bilirubin,Total 0.8 mg/dL (0.2-1.3); Blood Urea Nitrogen 9 mg/dL (7-17); Calcium 8.3 mg/dL (8.4-10.2); Carbon Dioxide 22 mmol/L (22-30); Chloride 101 mmol/L (98-107); Estimated CRCL calculation 80 ml/min; Estimated Glomerular Filt Rate > 60; Glucose 129 mg/dL (65-110); Lipase 140 U/L (23-300); Potassium 4.4 mmol/L (3.4-5.0); Sodium 134 mmol/L (137-145); Total Protein 7.3 g/dL (6.3-8.2)
[2025-01-10 13:25] LABS: INR 1.0; Partial Thromboplastin Time 20.3 Seconds (22.3-36.8); Prothrombin Time 13.0 Seconds (11.1-14.7)
[2025-01-10 13:29] LABS: Troponin I < 0.012 ng/mL (0.000-0.034)
[2025-01-10] MEDS: SODIUM CHLORIDE 0.9% IV 1,000 ML 999 ML IV CONT ×2 (13:32→16:14)
[2025-01-10] MEDS: diazePAM INJ (*CRX) 10 MG/2 ML SYRINGE 5 MG IV PUSH ×2 (13:32→16:16)
--- NOTE | 2025-01-10 13:39 | ED_ITS ---
HPI - General Adult General Chief complaint: Unspecified Stated complaint: unable to move extremities Time Seen by Provider: 01/10/25 13:17 History of Present Illness HPI narrative: Patient is a 29-year-old female who presents ER with reports of being unable to move her arms and legs. Patient has history of hypokalemic periodic paralysis. She when out drinking heavily a couple nights ago. She had a fall where she struck her left face on the ground and has bruising in the left periorbital region. She reports today she woke up and thought she loose getting weak in her arms. She then thinks she may have also had a panic attack because when her potassium gets low she can not move and she did want to be stuck in 1 area. She is having spasms and pain in the hands bilaterally. She has had perioral tingling. Related Data Allergies Allergy/AdvReac Type Severity Reaction Status Date / Time No Known Allergies Allergy Verified 01/10/25 12:47 Review of Systems 2 Review of Systems: All systems reviewed & are unremarkable except as noted in HPI and below Constitutional: Constitutional: Reports no additional constitutional complaints ENT: Reports system reviewed and no additional complaints, except as documented Cardiovascular: Cardiovascular: Reports no additional cardiovascular complaints Respiratory: Respiratory: Reports no additional respiratory complaints Gastrointestinal: Gastrointestinal: Reports no additional gastrointestinal complaints [facility] Past Medical History Medical History (Updated 01/10/25 @ 17:25 by German Mcclellan MD) Cyclothymic disorder Anorexia Hypokalemic periodic paralysis Family History Family History Father Family history of diabetes mellitus in first degree relative Exam 2 Narrative: GENERAL: Well-appearing, well-nourished, and in no acute distress. HEAD: Normocephalic, bruising of left periorbital region. Eyes: PERRLA, EOMI. Patient reports normal vision of left eye. Edema and bruising of the upper lid. ENT: Mucous membranes moist. CHEST: Clear to auscultation. No respiratory distress. HEART: Regular rate and rhythm. Normal peripheral pulses. ABDOMEN: Soft, nontender, nondistended. EXTREMITIES: Normal range of motion. No edema. Mild spasm of the hands bilaterally. SKIN: Warm, dry, no rash. NEURO: Alert and oriented x3. PSYCH: Normal mood and affect. Course Course Emergency Course: Patient still with some mild anxiety but heart rate is significantly improved. I suspect she has some alcohol withdrawal that is mild. All prescribe some Librium for home. Discussed reasons to return. Vital Signs Vital signs: Vital Signs Pulse Rate 128 H 01/10/25 12:34 Respiratory Rate 20 01/10/25 12:34 Blood Pressure 147/90 H 01/10/25 12:34 Pulse Oximetry 97 01/10/25 12:34 Oxygen Delivery Room Air 01/10/25 12:34 Temperature 98.0 F 01/10/25 12:47 Pulse Rate 140 H 01/10/25 16:15 Respiratory Rate 23 H 01/10/25 16:15 Blood Pressure 131/80 01/10/25 16:01 Pulse Oximetry 100 01/10/25 16:15 Oxygen Delivery Room Air 01/10/25 12:34 Medical Decision Making Vital Signs Vital Signs: Vital Signs Pulse Rate 128 H 01/10/25 12:34 Respiratory Rate 20 01/10/25 12:34 Blood Pressure 147/90 H 01/10/25 12:34 Pulse Oximetry 97 01/10/25 12:34 Oxygen Delivery Room Air 01/10/25 12:34 Temperature 98.0 F 01/10/25 12:47 Pulse Rate 140 H 01/10/25 16:15 Respiratory Rate 23 H 01/10/25 16:15 Blood Pressure 131/80 01/10/25 16:01 Pulse Oximetry 100 01/10/25 16:15 Oxygen Delivery Room Air 01/10/25 12:34 Lab Data 01/10/25 12:56 01/10/25 12:55 Labs: Lab Results 01/10/25 01/10/25 01/10/25 Range/Units 12:55 12:56 15:50 WBC 5.7 (4.5-10.0) K/mm3 RBC 4.01 L (4.2-5.4) M/mm3 Hgb 12.9 (12.0-15.0) g/dL Hct 39.4 (37.0-47.0) % MCV 98.3 (80-100) fl MCH 32.2 (26-34) pg MCHC 32.7 (32-36) g/dl RDW 12.7 (11.5-14.5) % Plt Count 429 H (150-375) k/mm3 MPV 9.6 (7.4-10.4) fl Immature Gran % (Auto) 0.4 (0-0.5) % Neut % (Auto) 60.0 (45.5-73.1) % Lymph % (Auto) 29.8 (18.3-44.2) % [place] % (Auto) 7.5 (2.6-8.5) % Eos % (Auto) 0.9 (0-4.4) % Baso % (Auto) 1.4 H (0.2-1.2) % Lymph # (Auto) 1.70 (0.9-3.2) K/mm3 [place] # (Auto) 0.4 (0.1-0.6) K/mm3 Eos # (Auto) 0.1 (0-0.3) K/mm3 Baso # (Auto) 0.1 (0.0-0.1) K/mm3 Abs Immat Gran (auto) 0.02 (0.00-0.031) K/mm3 Absolute Neuts (auto) 3.4 (1.3-6.7) K/mm3 Absolute Nucleated RBC 0.000 (0.0-0.012) K/mm3 Nucleated RBC % 0.0 (0.0-0.2) % PT 13.0 (11.1-14.7) Seconds INR 1.0 APTT 20.3 L (22.3-36.8) Seconds Sodium 134 L (137-145) mmol/L Potassium 4.4 (3.4-5.0) mmol/L Chloride 101 (98-107) mmol/L Carbon Dioxide 22 (22-30) mmol/L Anion Gap 11 (4-12) mmol/L BUN 9 D (7-17) mg/dL Creatinine 0.81 (0.7-1.0) mg/dL Estim Creat Clear Calc 80 ml/min Estimated GFR > 60 (59 - ) Glucose 129 H (65-110) mg/dL Calcium 8.3 L (8.4-10.2) mg/dL Magnesium 1.4 L (1.6-2.3) mg/dL Total Bilirubin 0.8 (0.2-1.3) mg/dL AST 67 H (14-36) U/L ALT 45 H (6-35) U/L Alkaline Phosphatase 85 (38-126) U/L Troponin I < 0.012 < 0.012 (0.000-0.034) ng/mL Total Protein 7.3 (6.3-8.2) g/dL Albumin 4.4 (3.5-5.1) g/dL Lipase 140 (23-300) U/L Ethyl Alcohol < 10 (<10) mg/dL Discharge Plan Discharge Clinical Impression: Alcohol withdrawal Patient Disposition: Home Condition: Stable Instructions: Alcohol Withdrawal (ED) Additional Instructions: Return to the ER if you have new confusion, you cannot keep down food/water, or you have additional concerns. Patient Language: Burundian Prescriptions: New chlordiazepoxide HCl 10 mg capsule 10 mg PO TID PRN (Reason: anxiety) Qty: 10 0RF No Action hydroxyzine pamoate [Vistaril] 50 mg capsule 50 mg PO QID PRN (Reason: Hyperventilation syndrome) Qty: 40 0RF Follow-up/Referrals: German Mcclellan MD [Emergency Provider, Emergency Medicine] - 1 Week Polly,Nguyễn Banerjee MD [Primary Care Provider]
[2025-01-10 13:55] LABS: Magnesium 1.4 mg/dL (1.6-2.3)
[2025-01-10 16:18] LABS: Troponin I < 0.012 ng/mL (0.000-0.034)
--- NOTE | 2025-01-10 17:23 | PC.NURSE ---
Pt states she wanted to leave AM ERP Dr Mcclellan made aware and to room. ERP Dr Mcclellan states he will d/c pt at this time.
== END 2025-01-10 17:36 | disposition home or self-care (01) ==
PROVIDERS: Emergency Medicine; Emergency Provider Emergency Medicine; PCP Family Medicine
DX: F10.939 Alcohol use, unspecified with withdrawal, unspecified (principal); G72.3 Periodic paralysis; F34.0 Cyclothymic disorder
CPT/HCPCS: 36415; 80053; 82077; 83690; 83735; 84484; 85025; 85610; 85730; 93005; 96361; 96374; 96376; 99284; J3360; J7030

== ENCOUNTER 2025-01-26 14:52 | Emergency (ER) | payer SELFPAY ==
[2025-01-26 14:59] VITALS: BP 141/88; PULSE 113; RESP 13; TEMP 36.5; O2SAT 100
[2025-01-26 15:05] VITALS: RESP 20
== END 2025-01-26 15:41 | disposition left against medical advice (07) ==
PROVIDERS: PCP Family Medicine
DX: R25.2 Cramp and spasm (principal)
CPT/HCPCS: 99199